=== PATIENT | female | born 1960 | race African-American/Black ===

== ENCOUNTER 2019-07-27 00:10 | Inpatient (IN) | payer MEDICAID ==
[~2019-07-27] VITALS: Ht 165.1 cm; Wt 104.8 kg
[2019-07-27] VITALS (7 sets, daily range): BP systolic 115–153; BP diastolic 61–96
--- NOTE | 2019-07-27 00:37 | NUR ---
ED Nurse Note: Pt ambulated to ED from home c/o N/V since 8pm, also complaining of abdominal pain, VSS, Pt A&Ox4, denies fever
[2019-07-27] MEDS ORDERED: Morphine Sulfate 4mg/ml Inj (IV USE ONLY) IVP ONE (00:45)
[2019-07-27] MEDS ORDERED: Omnipaque-300 100ml vial INJ PRN (00:45)
[2019-07-27 01:25] LABS: BASOPHILS % (AUTO) 1.3 % (0.0-2.0); EOSINOPHILS % (AUTO) 0.3 % (0.0-3.0); HEMATOCRIT 40.6 % (37.0-47.0); HEMOGLOBIN 13.8 G/DL (12.0-16.0); LYMPHOCYTES % (AUTO) 13.2 % (20.0-45.0); MEAN CORPUSCULAR VOLUME 90 FL (80-99); MONOCYTES % (AUTO) 5.1 % (1.0-10.0); NEUTROPHILS % (AUTO) 80.1 % (45.0-75.0); PLATELET COUNT 198 K/UL (150-450); RED CELL DISTRIBUTION WIDTH 12.1 % (11.6-14.8); WHITE BLOOD COUNT 9.8 K/UL (4.8-10.8)
[2019-07-27 01:34] LABS: BILIRUBIN, URINE NEGATIVE (NEGATIVE); GLUCOSE, URINE (UA) NEGATIVE (NEGATIVE); KETONES,URINE NEGATIVE (NEGATIVE); LEUKOCYTE ESTERASE ,URINE 3+ (NEGATIVE); NITRITE,URINE NEGATIVE (NEGATIVE); PH,URINE 5 (4.5-8.0); PROTEIN,URINE 2+ (NEGATIVE); UROBILINOGEN,URINE NORMAL MG/DL (0.0-1.0)
[2019-07-27 01:35] LABS: APPEARANCE,URINE SLIGHTLY CLOUDY; COLOR,URINE YELLOW
[2019-07-27 01:36] LABS: ANION GAP 9 mmol/L (5-15); BLOOD UREA NITROGEN 19 mg/dL (7-18); CALCIUM 9.4 MG/DL (8.5-10.1); CARBON DIOXIDE 28 MMOL/L (21-32); CHLORIDE 105 MMOL/L (98-107); SODIUM 141 MMOL/L (136-145)
[2019-07-27 01:40] LABS: ALANINE AMINOTRANSFERASE 80 U/L (12-78); ALBUMIN 3.3 G/DL (3.4-5.0); ALBUMIN/GLOBULIN RATIO 0.7 (1.0-2.7); ALKALINE PHOSPHATASE 191 U/L (46-116); ASPARTATE AMINO TRANSFERASE 50 U/L (15-37); BILIRUBIN,TOTAL 0.3 MG/DL (0.2-1.0)
[2019-07-27] MEDS ORDERED: cefTRIAXone 1 GM in NS 55 ML IVPB ONE (02:00)
--- NOTE | 2019-07-27 02:30 | NUR ---
ED Nurse Note: Pt resting in bed with eyes closed, non-labored breathing, no signs of distress, iv fluids infusing per order, will continue to monitor
--- NOTE | 2019-07-27 02:50 | Diagnostic Imaging Report ---
Clinical Indication: Abdominal pain for one day Technique: No oral contrast utilized, per emergency room physician request IV administration nonionic contrast. Venous phase spiral acquisition obtained through the abdomen and pelvis. Multiplanar reconstructions were generated. Total dose length product 1841 mGycm. CTDIvol(s) 30 mGy. Dose reduction achieved using automated exposure control Comparison: none Findings: There is a 6 mm calculus in the distal left ureter, approximately 1 cm proximal to the ureteral junction. This results in mild left hydronephrosis and hydroureter and considerable stranding of the perinephric and periureteral fat. No intrarenal calculus demonstrated. No right renal or ureteral calculi, right hydronephrosis or hydroureter demonstrated. The right kidney demonstrates a subcentimeter interpolar region low-attenuation lesion which is too small to characterize and another in the lower pole. The bladder is unremarkable. The gallbladder has been removed. The liver, bile ducts, pancreas, spleen, right adrenal are unremarkable. There is a 1.4 cm nodule in the left adrenal which demonstrates nonspecific attenuation No retroperitoneal or mesenteric mass or adenopathy. No pelvic mass or adenopathy. Uterus and ovaries are unremarkable. There is colonic diverticulosis. No evidence of acute diverticulitis. The appendix is normal. No small bowel distention. There is a small fat-containing umbilical hernia. No free or loculated intraperitoneal gas or fluid. Distal esophagus, stomach, duodenum are unremarkable. The included lung bases demonstrate posterior dependent atelectatic changes. The bones demonstrate mild scoliotic deformity and degenerative spondylosis changes. Impression: 6 mm distal left ureteral calculus. This results in left hydronephrosis, hydroureter, considerable stranding of the perinephric and periureteral fat 1.4 cm left adrenal nodule. This is probably benign. Recommend follow-up CT scan in one year to assess stability Colonic diverticulosis. No evidence of diverticulitis Subcentimeter low-attenuation right renal lesions, too small to characterize, most likely benign simple cysts. No further follow-up necessary Incidental findings as noted, including thoracolumbar scoliotic deformity, degenerative spondylosis, small fat-containing umbilical hernia This agrees with the preliminary interpretation provided overnight by [facility] teleradiology service. The CT scanner at [facility] is accredited by the [employer] and the scans are performed using protocols designed to limit radiation exposure to as low as reasonably achievable to attain images of sufficient resolution adequate for diagnostic evaluation.
[2019-07-27] MEDS ORDERED: Ketorolac 30mg Inj IV ONE (03:00)
[2019-07-27] MEDS ORDERED: Morphine Sulfate 4mg/ml Inj (IV USE ONLY) IVP PRN (04:00)
[2019-07-27] MEDS ORDERED: Ketorolac 30mg Inj IV PRN ×2 (04:00→09:00)
--- NOTE | 2019-07-27 04:10 | NUR ---
TRANSFER TO FLOOR: Patient transferred to as ordered, per [DR Quan]. Report given to [CARLOTA Castillo]. Belongings and medications given to []. Family and or S/O informed of transfer.
--- NOTE | 2019-07-27 04:17 | NUR ---
NURSE NOTES: Patient came from ER via wheelchair. A&OX4. IV sites are patent and intact. Skin intact. Belongings are checked. Patient wearing upper denture. Bed in lowest position. Call light within reach. Will continue to monitor.
[2019-07-27] MEDS ORDERED: COZAAR25 MG ORAL (04:49)
--- NOTE | 2019-07-27 04:50 | NUR ---
NURSE NOTES: Obtained new admit order from Dr. Medeiros. Per Dr. Medeiros, No antibiotic medication now, discontinue home medication, tell the morning RN contact Dr. Mondragon for IV fluid order.
--- NOTE | 2019-07-27 05:34 | Emergency Room Report ---
History of Present Illness General Chief Complaint: Vomiting Source: Patient Present Illness HPI 59-year-old female presents ED for evaluation. Complaining of abdominal pain and vomiting started tonight. After eating dinner. Notes nausea and vomiting. Status post cholecystectomy. Notes pain to lower abdomen. 8 out of 10, sharp , nonradiating. History of diverticulitis but states this feels different. Denies fevers or chills. No other aggravating relieving factors. Denies any other associated symptoms Allergies: Coded Allergies: No Known Allergies (Unverified , 07/27/19) Patient History Past Medical History: HTN, other - diverticulitis Past Surgical History: tania Pertinent Family History: none Social History: Denies: smoking, alcohol use, drug use Last Menstrual Period: 07/14/19 Now: No : 6 Para: 2 Immunizations: UTD Reviewed Nursing Documentation: PMH: Agreed; PSxH: Agreed Nursing Documentation-PMH Hx Hypertension: Yes Hx Gastrointestinal Problems: Yes Review of Systems All Other Systems: negative except mentioned in HPI Physical Exam Vital Signs Date Time Temp Pulse Resp B/P (MAP) Pulse Ox O2 Delivery O2 Flow Rate FiO2 07/27/19 00:15 97.9 80 18 145/61 (89) 93 Room Air Sp02 EP Interpretation: reviewed, normal General Appearance: no apparent distress, alert, GCS 15, non-toxic Head: normocephalic, atraumatic Eyes: bilateral eye normal inspection, bilateral eye PERRL ENT: hearing grossly normal, normal pharynx, no angioedema, normal voice Neck: full range of motion, supple/symm/no masses Respiratory: chest non-tender, lungs clear, normal breath sounds, speaking full sentences Cardiovascular #1: regular rate, rhythm, no edema Cardiovascular #2: 2+ carotid (R), 2+ carotid (L), 2+ radial (R), 2+ radial (L) , 2+ dorsalis pedis (R), 2+ dorsalis pedis (L) Gastrointestinal: normal bowel sounds, soft, non-distended, no guarding, no rebound, tenderness Rectal: deferred Genitourinary: normal inspection, no CVA tenderness Musculoskeletal: back normal, normal range of motion, gait/station normal, non- tender Neurologic: alert, motor strength/tone normal, oriented x3, sensory intact, responsive, speech normal Psychiatric: judgement/insight normal, memory normal, mood/affect normal, no suicidal/homicidal ideation Reflexes: 3+ bicep (R), 3+ bicep (L), 3+ tricep (R), 3+ tricep (L), 3+ knee (R) , 3+ knee (L) Skin: other - see nursing skin notes Lymphatic: no adenopathy Medical Decision Making Diagnostic Impression: Primary Impression: Kidney stone Additional Impressions: UTI (urinary tract infection) Qualified Codes: N39.0 - Urinary tract infection, site not specified; R31.9 - Hematuria, unspecified Diverticulosis Labs Test 07/27/19 00:55 07/27/19 01:00 Urine Color Yellow Urine Appearance Slightly cloudy Urine pH 5 (4.5-8.0) Urine Specific [place] 1.025 (1.005-1.035) Urine Protein 2+ (NEGATIVE) Urine Glucose (UA) Negative (NEGATIVE) Urine Ketones Negative (NEGATIVE) Urine Blood 1+ (NEGATIVE) Urine Nitrite Negative (NEGATIVE) Urine Bilirubin Negative (NEGATIVE) Urine Urobilinogen Normal MG/DL (0.0-1.0) Urine Leukocyte Esterase 3+ (NEGATIVE) Urine RBC 2-4 /HPF (0 - 2) Urine WBC 20-30 /HPF (0 - 2) Urine Squamous Epithelial Cells Many /LPF (NONE/OCC) Urine Bacteria Moderate /HPF (NONE) White Blood Count 9.8 K/UL (4.8-10.8) Red Blood Count 4.50 M/UL (4.20-5.40) Hemoglobin 13.8 G/DL (12.0-16.0) Hematocrit 40.6 % (37.0-47.0) Mean Corpuscular Volume 90 FL (80-99) Mean Corpuscular Hemoglobin 30.7 PG (27.0-31.0) Mean Corpuscular Hemoglobin Concent 34.0 G/DL (32.0-36.0) Red Cell Distribution Width 12.1 % (11.6-14.8) Platelet Count 198 K/UL (150-450) Mean Platelet Volume 9.8 FL (6.5-10.1) Neutrophils (%) (Auto) 80.1 % (45.0-75.0) Lymphocytes (%) (Auto) 13.2 % (20.0-45.0) Monocytes (%) (Auto) 5.1 % (1.0-10.0) Eosinophils (%) (Auto) 0.3 % (0.0-3.0) Basophils (%) (Auto) 1.3 % (0.0-2.0) Sodium Level 141 MMOL/L (136-145) Potassium Level 4.0 MMOL/L (3.5-5.1) Chloride Level 105 MMOL/L (98-107) Carbon Dioxide Level 28 MMOL/L (21-32) Anion Gap 9 mmol/L (5-15) Blood Urea Nitrogen 19 mg/dL (7-18) Creatinine 1.0 MG/DL (0.55-1.30) Estimat Glomerular Filtration Rate > 60 mL/min (>60) Glucose Level 140 MG/DL (74-106) Calcium Level 9.4 MG/DL (8.5-10.1) Total Bilirubin 0.3 MG/DL (0.2-1.0) Aspartate Amino Transf (AST/SGOT) 50 U/L (15-37) Alanine Aminotransferase (ALT/SGPT) 80 U/L (12-78) Alkaline Phosphatase 191 U/L (46-116) Total Protein 8.3 G/DL (6.4-8.2) Albumin 3.3 G/DL (3.4-5.0) Globulin 5.0 g/dL Albumin/Globulin Ratio 0.7 (1.0-2.7) Lipase 105 U/L (73-393) CT/MRI/US Diagnostic Results CT/MRI/US Diagnostic Results : Imaging Test Ordered: CT A/P Impression CT ABDOMEN & PELVIS With Contrast: There is a 7 mm obstructing stone within the distal left ureter just prior to the UVJ with moderate upstream obstructive changes. Incompletely characterized 1.4 cm left adrenal nodule. Descending and sigmoid diverticulosis without diverticulitis. Last Vital Signs Date Time Temp Pulse Resp B/P (MAP) Pulse Ox O2 Delivery O2 Flow Rate FiO2 07/27/19 05:22 Room Air 07/27/19 04:30 97.7 59 19 153/96 (115) 95 Status: improved Disposition: ADMITTED INPATIENT Condition: Serious Referrals: [facility],REFERRING (PCP) Francis Harrell MD Jul 27, 2019 05:34
--- NOTE | 2019-07-27 07:30 | NUR ---
HAND-OFF: Report given to Eugene VAN.
--- NOTE | 2019-07-27 07:48 | NUR ---
NURSE NOTES: received report from CARLOTA Turpin. patient in bed. sleeping. no respiratory distress noted. no facial grimacing. IV on RH22, LAC 20G saline lock. intact. NPO except ice chips and meds. bed in the lowest position and locked. call light within reach. will continue to provide plan of care.
--- NOTE | 2019-07-27 08:52 | Consultation ---
History of Present Illness General Date patient seen: Jul 27, 2019 Time patient seen: 07:15 - am Chief Complaint: Left Flank pain Referring physician: Waldemar Reason for Consultation: Pain management Present Illness HPI This is a 59 y/o female being seen on here in [facility] with c/o left flank pain since last night. She says the pain is off/on acute 7/10 sharp worse with movement and reduced on the medication. We were consulted so patient has adequate pain control while here in the hospital. She has been found to have left kidney stone with hydronephrosis. PAST MEDICAL HISTORY: History of hypertension, history of anxiety. SOCIAL HISTORY: She does not drink alcohol, but does smoke cigarettes. Allergies: Coded Allergies: No Known Allergies (Unverified , 07/27/19) Medication History Scheduled Losartan Potassium* (Cozaar*), 25 MG ORAL DAILY, (Reported) Patient History Healthcare decision maker Resuscitation status Full Code Advanced Directive on File Review of Systems Constitutional: Reports: no symptoms Eye: Reports: no symptoms ENT: Reports: no symptoms Respiratory: Reports: no symptoms Cardiovascular: Reports: no symptoms Gastrointestinal: Reports: no symptoms Genitourinary: Reports: no symptoms Musculoskeletal: Reports: no symptoms Skin: Reports: no symptoms Psychiatric: Reports: no symptoms Neurological: Reports: no symptoms Endocrine: Reports: no symptoms Hematologic/Lymphatic: Reports: no symptoms Physical Exam Physical Exam Narrative PHYSICAL EXAMINATION: GENERAL: AA&O HEENT: PERLLA NECK: Supple. CHEST: Clear to auscultation. CARDIOVASCULAR: S1 S2 regular ABDOMEN: Soft, obese with good bowel sounds. EXT: No CCE Last 24 Hour Vital Signs Date Time Temp Pulse Resp B/P (MAP) Pulse Ox O2 Delivery O2 Flow Rate FiO2 07/27/19 08:00 97.8 68 19 132/75 (94) 94 07/27/19 05:22 Room Air 07/27/19 04:30 97.7 59 19 153/96 (115) 95 07/27/19 04:10 98.2 82 20 137/72 95 Room Air 07/27/19 02:15 98.2 82 20 137/72 95 Room Air 07/27/19 00:15 97.9 80 18 145/61 93 Room Air 07/27/19 00:15 80 18 Room Air 07/27/19 00:15 97.9 80 18 145/61 (89) 93 Room Air Laboratory Tests Test 07/27/19 00:55 07/27/19 01:00 Urine Color Yellow Urine Appearance Slightly cloudy Urine pH 5 (4.5-8.0) Urine Specific [place] 1.025 (1.005-1.035) Urine Protein 2+ (NEGATIVE) H Urine Glucose (UA) Negative (NEGATIVE) Urine Ketones Negative (NEGATIVE) Urine Blood 1+ (NEGATIVE) H Urine Nitrite Negative (NEGATIVE) Urine Bilirubin Negative (NEGATIVE) Urine Urobilinogen Normal MG/DL (0.0-1.0) Urine Leukocyte Esterase 3+ (NEGATIVE) H Urine RBC 2-4 /HPF (0 - 2) H Urine WBC 20-30 /HPF (0 - 2) H Urine Squamous Epithelial Cells Many /LPF (NONE/OCC) H Urine Bacteria Moderate /HPF (NONE) H White Blood Count 9.8 K/UL (4.8-10.8) Red Blood Count 4.50 M/UL (4.20-5.40) Hemoglobin 13.8 G/DL (12.0-16.0) Hematocrit 40.6 % (37.0-47.0) Mean Corpuscular Volume 90 FL (80-99) Mean Corpuscular Hemoglobin 30.7 PG (27.0-31.0) Mean Corpuscular Hemoglobin Concent 34.0 G/DL (32.0-36.0) Red Cell Distribution Width 12.1 % (11.6-14.8) Platelet Count 198 K/UL (150-450) Mean Platelet Volume 9.8 FL (6.5-10.1) Neutrophils (%) (Auto) 80.1 % (45.0-75.0) H Lymphocytes (%) (Auto) 13.2 % (20.0-45.0) L Monocytes (%) (Auto) 5.1 % (1.0-10.0) Eosinophils (%) (Auto) 0.3 % (0.0-3.0) Basophils (%) (Auto) 1.3 % (0.0-2.0) Sodium Level 141 MMOL/L (136-145) Potassium Level 4.0 MMOL/L (3.5-5.1) Chloride Level 105 MMOL/L (98-107) Carbon Dioxide Level 28 MMOL/L (21-32) Anion Gap 9 mmol/L (5-15) Blood Urea Nitrogen 19 mg/dL (7-18) H Creatinine 1.0 MG/DL (0.55-1.30) Estimat Glomerular Filtration Rate > 60 mL/min (>60) Glucose Level 140 MG/DL (74-106) H Calcium Level 9.4 MG/DL (8.5-10.1) Total Bilirubin 0.3 MG/DL (0.2-1.0) Aspartate Amino Transf (AST/SGOT) 50 U/L (15-37) H Alanine Aminotransferase (ALT/SGPT) 80 U/L (12-78) H Alkaline Phosphatase 191 U/L (46-116) H Total Protein 8.3 G/DL (6.4-8.2) H Albumin 3.3 G/DL (3.4-5.0) L Globulin 5.0 g/dL Albumin/Globulin Ratio 0.7 (1.0-2.7) L Lipase 105 U/L (73-393) Height (Feet): 5 Height (Inches): 5.00 Weight (Pounds): 231 Medications Current Medications Medications (Trade) Dose Ordered Sig/Sarah Route PRN Reason Start Time Stop Time Status Last Admin Dose Admin Acetaminophen (Tylenol) 650 mg Q6HR PRN ORAL Mild Pain (Pain Scale 1-3) 07/27/19 04:00 Iohexol (OMNIPAQUE-300 100ml) 100 ml NOW PRN INJ Radiology Procedure 07/27/19 00:45 07/29/19 00:39 Ketorolac Tromethamine (Toradol 30mg) 15 mg PRN PRN IV Moderate Breakthru Pain (5-7) 07/27/19 04:00 Morphine Sulfate (Morphine Sulfate) 4 mg Q6HR PRN IVP Moderate Pain (Pain Scale 4-6) 07/27/19 04:00 Ondansetron HCl (Zofran) 4 mg Q6H PRN IVP Nausea & Vomiting 07/27/19 05:00 08/26/19 04:59 Assessment/Plan Assessment/Plan: (1) Left sided flank pain (2) Kidney stone Patient to be started on Morphine 2mg IV Q4H PRN severe pain and Toradol 15mg IV Q6H PRN moderate pain. D/w Dr. Jones and he concurred. Thank you for the courtesy of this consultation. Vik Shepard Jul 27, 2019 08:52
--- NOTE | 2019-07-27 09:06 | General Progress Note ---
Assessment/Plan Assessment/Plan: Assessment - N/V, ? resolved, ? gastroenteritis vs food poisoning - abnormal LFT, ? fatty liver, ? other - s/p recent cholecystectomy - urolithiasis with hydro Recommendations - check MRCP - check hepatitis serologies - Urology opinion - clears - H2B or PPI Subjective Allergies: Coded Allergies: No Known Allergies (Unverified , 07/27/19) Objective Last 24 Hour Vital Signs Date Time Temp Pulse Resp B/P (MAP) Pulse Ox O2 Delivery O2 Flow Rate FiO2 07/27/19 08:00 97.8 68 19 132/75 (94) 94 07/27/19 05:22 Room Air 07/27/19 04:30 97.7 59 19 153/96 (115) 95 07/27/19 04:10 98.2 82 20 137/72 95 Room Air 07/27/19 02:15 98.2 82 20 137/72 95 Room Air 07/27/19 00:15 97.9 80 18 145/61 93 Room Air 07/27/19 00:15 80 18 Room Air 07/27/19 00:15 97.9 80 18 145/61 (89) 93 Room Air Laboratory Tests 07/27/19 00:55: Urine Color Yellow, Urine Appearance Slightly cloudy, Urine pH 5, Urine Specific [place] 1.025, Urine Protein 2+H, Urine Glucose (UA) Negative, Urine Ketones Negative, Urine Blood 1+H, Urine Nitrite Negative, Urine Bilirubin Negative, Urine Urobilinogen Normal, Urine Leukocyte Esterase 3+H, Urine RBC 2- 4H, Urine WBC 20-30H, Urine Squamous Epithelial Cells ManyH, Urine Bacteria ModerateH 07/27/19 01:00: White Blood Count 9.8, Red Blood Count 4.50, Hemoglobin 13.8, Hematocrit 40.6, Mean Corpuscular Volume 90, Mean Corpuscular Hemoglobin 30.7, Mean Corpuscular Hemoglobin Concent 34.0, Red Cell Distribution Width 12.1, Platelet Count 198, Mean Platelet Volume 9.8, Neutrophils (%) (Auto) 80.1H, Lymphocytes (%) (Auto) 13.2L, Monocytes (%) (Auto) 5.1, Eosinophils (%) (Auto) 0.3, Basophils (%) (Auto ) 1.3, Sodium Level 141, Potassium Level 4.0, Chloride Level 105, Carbon Dioxide Level 28, Anion Gap 9, Blood Urea Nitrogen 19H, Creatinine 1.0, Estimat Glomerular Filtration Rate > 60, Glucose Level 140H, Calcium Level 9.4, Total Bilirubin 0.3, Aspartate Amino Transf (AST/SGOT) 50H, Alanine Aminotransferase ( ALT/SGPT) 80H, Alkaline Phosphatase 191H, Total Protein 8.3H, Albumin 3.3L, Globulin 5.0, Albumin/Globulin Ratio 0.7L, Lipase 105 Height (Feet): 5 Height (Inches): 5.00 Weight (Pounds): 231 Dejan Baig MD Jul 27, 2019 09:06
--- NOTE | 2019-07-27 09:30 | NUR ---
NURSE NOTES RN notified nguyễn Araujo regarding IV fluid order. MD will review lab and put order if the patient needs.
--- NOTE | 2019-07-27 13:24 | NUR ---
NURSE NOTES: patient had a episode of chalking with her saliva during sleeping. patient said that she has a hx of sleep apnea using bipap at home. notified Dr. Medeiros get an physician consult with Dr. Sr for pulomary consult. RN called Dr. Sr. Received order of change to cardiac diet. heparin injection SQ twice a day for DVT PPX. bipap PRN, Oxygen PRN. Zosyn 3.375IV Q6hrs. breathing TX janes Q4hrs. order noted and carried out.
--- NOTE | 2019-07-27 14:06 | NUR ---
NURSE NOTES: Patient seen by Dr. Arsenio Almaraz. New order of Ceftriaxone 1gm for UTI. DC Zosyn3.375 Q6hrs.
--- NOTE | 2019-07-27 14:30 | Consultation ---
DATE OF CONSULTATION: 07/27/2019 GASTROENTEROLOGY CONSULTATION CONSULTING PHYSICIAN: Dejan Baig M.D. CHIEF COMPLAINT: I was asked to see this patient by Dr. James Medeiros for evaluation of vomiting and abnormal liver tests. HISTORY OF PRESENT ILLNESS: The patient is a pleasant 59-year-old woman, who had a cholecystectomy about 3 months ago. She came to the hospital because of 1-day history of acute nausea and vomiting. She is better now. She has not had any vomiting overnight. She has no abdominal pain and no contacts with the same symptoms. She had CT imaging of her abdomen showing some urolithiasis with one stone potentially causing hydronephrosis. She also has some diverticulosis, but no diverticulitis. The patient states that her last endoscopy and colonoscopy were done at an outside hospital in about October of this year and she cannot not recall being told of any significant findings. PAST MEDICAL HISTORY: History of hypertension, history of anxiety. MEDICATIONS: Vitamin D, medication for hypertension, potassium supplements, and Pepcid. FAMILY HISTORY: Positive for mother having CHF and COPD. SOCIAL HISTORY: The patient is and she has 2 children. She does not drink alcohol, but does smoke cigarettes. REVIEW OF SYSTEMS: Otherwise negative. PHYSICAL EXAMINATION: GENERAL: Pleasant, obese, woman, seen in her room. HEENT: Normocephalic, atraumatic. Sclerae anicteric. Oropharynx clear. NECK: Supple. CHEST: Clear to auscultation. CARDIOVASCULAR: Revealed a regular rate. ABDOMEN: Soft, obese with good bowel sounds. There is no significant tenderness throughout the abdomen at this point after overnight rest. LABORATORY DATA: Noted. ASSESSMENT: This patient presents with a transient episode of nausea and vomiting yesterday, which perhaps appears to have resolved already. This may have been due to an exposure to food toxins versus viral gastroenteritis. If so, then course will be unremarkable and recovery will be with supportive measures only. The patient does however have abnormal liver tests, which may be due to fatty liver since the patient is obese. I would do an MRI to rule out any common bile duct stones and then also check her hepatitis serologies to rule out any chronic viral hepatitis. The patient also has kidney stones, which may have played a role in the patient's presentation. Urology consultation is pending. RECOMMENDATIONS: Per above discussion and per orders written in the chart. Thank you for asking me to participate in the care of this patient. Dejan Baig M.D. DR: YASMIN JOB#: [id number] CC:
--- NOTE | 2019-07-27 15:31 | Pulmonology Progress Note ---
Assessment/Plan Assessment/Plan Pulmonary Consultation HPI Patient is a 59-year-old female admitted with abdominal pain, nausea and vomiting started tonight. Status post cholecystectomy 3 months ago. Notes pain to lower abdomen, 8 out of 10, sharp, nonradiating. History of diverticulitis but states this feels different. Denies fevers or chills. No other aggravating relieving factors. Denies any other associated symptoms Allergies: No Known Allergies Past Medical History: Hypertension, Obstructive Sleep Apnea, Diverticulitis Past Surgical History: cholecystectomy Social History: Denies alcohol use, drug use, smoking history All Other Systems: negative except mentioned in HPI Physical Exam Vital Signs Noted Date Time Temp Pulse Resp B/P (MAP) Pulse Ox O2 Delivery O2 Flow Rate FiO2 07/27/19 00:15 97.9 80 18 145/61 (89) 93 Room Air General Appearance: no apparent distress, alert, GCS 15, non-toxic Head: normocephalic, atraumatic Eyes: bilateral eye normal inspection, bilateral eye PERRL ENT: hearing grossly normal, normal pharynx, no angioedema, normal voice Neck: full range of motion, supple/symm/no masses Respiratory: chest non-tender, lungs clear, normal breath sounds, speaking full sentences Cardiovascular: regular rate, rhythm, HS1, HS2 normal, no edema Gastrointestinal: normal bowel sounds, soft, non-distended, no guarding, no rebound, tenderness, no CVA tenderness Musculoskeletal: back normal, normal range of motion, gait/station normal, non- tender Neurologic: alert, motor strength/tone normal, oriented x3, sensory intact, responsive, speech normal Lymphatic: no adenopathy Impression: Kidney stone Urinary tract infection Diverticulosis Hypertension Obstructive Sleep Apnea Possible COPD Plan IV Antibiotics Urology 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 QHS/PRN HHN PRN O2 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 Monitor Labs Labs Noted Test 07/27/19 00:55 07/27/19 01:00 Urine Color Yellow Urine Appearance Slightly cloudy Urine pH 5 (4.5-8.0) Urine Specific [place] 1.025 (1.005-1.035) Urine Protein 2+ (NEGATIVE) Urine Glucose (UA) Negative (NEGATIVE) Urine Ketones Negative (NEGATIVE) Urine Blood 1+ (NEGATIVE) Urine Nitrite Negative (NEGATIVE) Urine Bilirubin Negative (NEGATIVE) Urine Urobilinogen Normal MG/DL (0.0-1.0) Urine Leukocyte Esterase 3+ (NEGATIVE) Urine RBC 2-4 /HPF (0 - 2) Urine WBC 20-30 /HPF (0 - 2) Urine Squamous Epithelial Cells Many /LPF (NONE/OCC) Urine Bacteria Moderate /HPF (NONE) White Blood Count 9.8 K/UL (4.8-10.8) Red Blood Count 4.50 M/UL (4.20-5.40) Hemoglobin 13.8 G/DL (12.0-16.0) Hematocrit 40.6 % (37.0-47.0) Mean Corpuscular Volume 90 FL (80-99) Mean Corpuscular Hemoglobin 30.7 PG (27.0-31.0) Mean Corpuscular Hemoglobin Concent 34.0 G/DL (32.0-36.0) Red Cell Distribution Width 12.1 % (11.6-14.8) Platelet Count 198 K/UL (150-450) Mean Platelet Volume 9.8 FL (6.5-10.1) Neutrophils (%) (Auto) 80.1 % (45.0-75.0) Lymphocytes (%) (Auto) 13.2 % (20.0-45.0) Monocytes (%) (Auto) 5.1 % (1.0-10.0) Eosinophils (%) (Auto) 0.3 % (0.0-3.0) Basophils (%) (Auto) 1.3 % (0.0-2.0) Sodium Level 141 MMOL/L (136-145) Potassium Level 4.0 MMOL/L (3.5-5.1) Chloride Level 105 MMOL/L (98-107) Carbon Dioxide Level 28 MMOL/L (21-32) Anion Gap 9 mmol/L (5-15) Blood Urea Nitrogen 19 mg/dL (7-18) Creatinine 1.0 MG/DL (0.55-1.30) Estimat Glomerular Filtration Rate > 60 mL/min (>60) Glucose Level 140 MG/DL (74-106) Calcium Level 9.4 MG/DL (8.5-10.1) Total Bilirubin 0.3 MG/DL (0.2-1.0) Aspartate Amino Transf (AST/SGOT) 50 U/L (15-37) Alanine Aminotransferase (ALT/SGPT) 80 U/L (12-78) Alkaline Phosphatase 191 U/L (46-116) Total Protein 8.3 G/DL (6.4-8.2) Albumin 3.3 G/DL (3.4-5.0) Globulin 5.0 g/dL Albumin/Globulin Ratio 0.7 (1.0-2.7) Lipase 105 U/L (73-393) CT Abdomen and Pelvis : CT ABDOMEN & PELVIS With Contrast: There is a 7 mm obstructing stone within the distal left ureter just prior to the UVJ with moderate upstream obstructive changes. Incompletely characterized 1.4 cm left adrenal nodule. Descending and sigmoid diverticulosis without diverticulitis Subjective ROS Limited/Unobtainable: No Gastrointestinal/Abdominal: Reports: nausea, vomiting Allergies: Coded Allergies: No Known Allergies (Unverified , 07/27/19) Objective Last 24 Hour Vital Signs Date Time Temp Pulse Resp B/P (MAP) Pulse Ox O2 Delivery O2 Flow Rate FiO2 07/27/19 12:00 97.0 68 18 123/80 (94) 93 07/27/19 09:00 Room Air 07/27/19 08:00 97.8 68 19 132/75 (94) 94 07/27/19 05:22 Room Air 07/27/19 04:30 97.7 59 19 153/96 (115) 95 07/27/19 04:10 98.2 82 20 137/72 95 Room Air 07/27/19 02:15 98.2 82 20 137/72 95 Room Air 07/27/19 00:15 97.9 80 18 145/61 93 Room Air 07/27/19 00:15 80 18 Room Air 07/27/19 00:15 97.9 80 18 145/61 (89) 93 Room Air Laboratory Tests 07/27/19 00:55: Urine Color Yellow, Urine Appearance Slightly cloudy, Urine pH 5, Urine Specific [place] 1.025, Urine Protein 2+H, Urine Glucose (UA) Negative, Urine Ketones Negative, Urine Blood 1+H, Urine Nitrite Negative, Urine Bilirubin Negative, Urine Urobilinogen Normal, Urine Leukocyte Esterase 3+H, Urine RBC 2- 4H, Urine WBC 20-30H, Urine Squamous Epithelial Cells ManyH, Urine Bacteria ModerateH 07/27/19 01:00: White Blood Count 9.8, Red Blood Count 4.50, Hemoglobin 13.8, Hematocrit 40.6, Mean Corpuscular Volume 90, Mean Corpuscular Hemoglobin 30.7, Mean Corpuscular Hemoglobin Concent 34.0, Red Cell Distribution Width 12.1, Platelet Count 198, Mean Platelet Volume 9.8, Neutrophils (%) (Auto) 80.1H, Lymphocytes (%) (Auto) 13.2L, Monocytes (%) (Auto) 5.1, Eosinophils (%) (Auto) 0.3, Basophils (%) (Auto ) 1.3, Sodium Level 141, Potassium Level 4.0, Chloride Level 105, Carbon Dioxide Level 28, Anion Gap 9, Blood Urea Nitrogen 19H, Creatinine 1.0, Estimat Glomerular Filtration Rate > 60, Glucose Level 140H, Calcium Level 9.4, Total Bilirubin 0.3, Aspartate Amino Transf (AST/SGOT) 50H, Alanine Aminotransferase ( ALT/SGPT) 80H, Alkaline Phosphatase 191H, Total Protein 8.3H, Albumin 3.3L, Globulin 5.0, Albumin/Globulin Ratio 0.7L, Lipase 105 Current Medications Medications (Trade) Dose Ordered Sig/Sarah Route PRN Reason Start Time Stop Time Status Last Admin Dose Admin Acetaminophen (Tylenol) 650 mg Q6HR PRN ORAL Mild Pain (Pain Scale 1-3) 07/27/19 04:00 Albuterol/ Ipratropium (Albuterol/ Ipratropium) 3 ml Q4HRT HHN 07/27/19 15:00 08/01/19 14:59 Ceftriaxone Sodium 1 gm/ Dextrose 55 ml @ 110 mls/hr Q24H IVPB 07/28/19 02:00 08/04/19 01:59 Heparin Sodium (Porcine) (Heparin 5000 units/ml) 5,000 units EVERY 12 HOURS SUBQ 07/27/19 21:00 08/26/19 20:59 Iohexol (OMNIPAQUE-300 100ml) 100 ml NOW PRN INJ Radiology Procedure 07/27/19 00:45 07/29/19 00:39 Ketorolac Tromethamine (Toradol 30mg) 15 mg Q6H PRN IV moderate pain 07/27/19 09:00 08/01/19 08:59 Morphine Sulfate (Morphine Sulfate) 2 mg Q4H PRN IVP severe pain 07/27/19 09:00 08/03/19 08:59 Ondansetron HCl (Zofran) 4 mg Q6H PRN IVP Nausea & Vomiting 07/27/19 05:00 08/26/19 04:59 Tavo Marshall MD Jul 27, 2019 15:30
[2019-07-27] MEDS: Albuterol/Ipratropium 3ml neb HHN SCH ×2 (15:34→20:07)
--- NOTE | 2019-07-27 15:53 | Diagnostic Imaging Report ---
Indication: Nausea, vomiting, abnormal liver function tests, status post recent cholecystectomy Technique: Coronal and axial single shot fast spin-echo breath-hold, axial T2 FRFSE, 2-D thick slab MRCP, AXIAL 2-D FIESTA fat saturated, axial 3-D dual echo breath-hold, water weighted axial LAVA FLEX, revealed 3-D MRCP images were obtained of the abdomen. MIP reconstructions were generated of the bile ducts Comparison: Reference made to abdomen pelvis CT of earlier the same day Findings: Previously reported left adrenal nodule demonstrates signal dropout on the out of phase images, consistent with a benign lipid rich adenoma. The patient is status post cholecystectomy. Susceptibility artifact from the cholecystectomy clips is noted. The bile ducts are nondilated and demonstrate no evidence of filling defect. The pancreatic duct is normal in appearance. The liver, pancreas, spleen, right adrenal are all unremarkable. The left kidney demonstrates [id number] hydronephrosis. There is considerable fluid surrounding the kidney, both perinephric and in Gerota's fascia. There is a filling defect of the distal left ureter seen on the coronal images, corresponding to the large calculus demonstrated on prior CT scan. 2 cysts are seen in the right kidney. Impression: Left adrenal nodule described on recent CT scan is demonstrated on out of phase dual echo images to represent a benign lipid rich adenoma Status post cholecystectomy. No evidence of biliary ductal dilatation or choledocholithiasis Mild to moderate left hydronephrosis and hydroureter, with distal ureteral filling defect responding to calculus described on recent CT scan Incidental findings small right renal cyst
--- NOTE | 2019-07-27 17:30 | NUR ---
NURSE NOTES: Pt. received sleeping in bed, no acute SOB indicated at this time. Bed in the low and locked position, side rails are up, and call light is in reach. Addendum: 07/27/19 at 2349 by Pedro Rodriguez RN Disregard above time stamp. Actual time of documentation 1929.
[2019-07-27] MEDS: Morphine Sulfate 2mg/ml Inj(IV/IM USE ONLY) IVP PRN ×2 (17:46→22:15)
[2019-07-27] MEDS ORDERED: Zosyn 2.25gm inj IV SCH (18:00)
--- NOTE | 2019-07-27 18:15 | NUR ---
NURSE NOTES: patient asking medication for blood pressure. she said that she takes cozaar 25mg po daily at home. Notified edilberto Araujo and received order cozaar 25mg po daily. hold if SBP<130. order noted and carried out.
--- NOTE | 2019-07-27 19:25 | NUR ---
HAND-OFF: Report given to CARLOTA Morales&CARLOTA Vasquez.
[2019-07-27] MEDS: Heparin 5000 units/ml inj SUBQ SCH (20:52)
--- NOTE | 2019-07-27 21:10 | NUR ---
NURSE NOTES: Pt is in bed. awake and verbal. No acute distress noted. NO SOB. Room air. Pt has a visitor by bedside. Fall precaution in place. Pt will be monitored. Trainee Pedro Rodriguez RN will be assisting in the care of the patient.
--- NOTE | 2019-07-27 22:45 | NUR ---
NURSE NOTES: Pt. refused BIPAP from respiratory therapist.
[2019-07-28] VITALS: BP 115/73
[2019-07-28] MEDS: Albuterol/Ipratropium 3ml neb HHN SCH ×7 (00:13→22:18)
--- NOTE | 2019-07-28 00:45 | Consultation ---
DATE OF CONSULTATION: 07/27/2019 INFECTIOUS DISEASE CONSULTATION CONSULTING PHYSICIAN: Arsenio Bravo M.D. PRIMARY ATTENDING PHYSICIAN: James Medeiros M.D. REASON FOR CONSULT: UTI, pyelonephritis, hydronephrosis. HISTORY OF PRESENT ILLNESS: This is a 59-year-old female, admitted today from home, complaining of abdominal pain, nausea, and vomiting. These symptoms started on the day of admission after eating dinner. Pain was 8/10, sharp. PAST MEDICAL HISTORY: Significant for hypertension, diverticulitis. PAST SURGICAL HISTORY: She has a history of cholecystectomy. ALLERGIES: No known drug allergies. MEDICATIONS: Morphine, Toradol, Zofran, Tylenol, got a dose of ceftriaxone in the ER. SOCIAL HISTORY: . No history of alcohol, drug abuse, or smoking. REVIEW OF SYSTEMS: Unobtainable. The patient is sedated, sleeping, and snoring. PHYSICAL EXAMINATION: VITAL SIGNS: Temperature 97.8, pulse 68, blood pressure 132/75. GENERAL APPEARANCE: No acute distress. Obese. HEAD AND NECK: [place] conjunctivae. HEART: Normal rate. LUNGS: Clear. ABDOMEN: Soft, nontender. EXTREMITIES: No edema. LABORATORY AND DIAGNOSTIC DATA: WBC 9.8, hemoglobin 13.8, hematocrit 40.6, and platelets is 198,000. Sodium 141, potassium 4, chloride 105, bicarbonate 28, BUN 19, creatinine 1. AST 50, ALT 80, alkaline phosphatase is 191, total protein 8.3, albumin is 3.3, lipase is 105. UA showed wbc's of 20 to 30, rbc's of [address] scan of the abdomen and pelvis showed a 6 mm distal left ureteral calculus, left kidney hydronephrosis, hydroureter, stranding of perinephric and periureteral fat, 1.4 cm left adrenal nodule, colonic diverticulosis. IMPRESSION: 1. Obstructive uropathy, likely with UTI and pyelonephritis. 2. Distal ureteral calculus. 3. Elevated transaminase. 4. Obesity. 5. Hypertension. 6. Diverticulosis. 7. Adrenal nodule. 8. Hydronephrosis with hydroureter. RECOMMENDATION: We will continue ceftriaxone. We will follow up the cultures. At the end of my exam, I thank Dr. Medeiros for involving me in the care of this patient. Arsenio Bravo M.D. DR: MARCO ANTONIO JOB#: [id number] CC: REANNA
[2019-07-28] MEDS: cefTRIAXone 1 GM in D5W 55 ML IVPB SCH (02:11)
--- NOTE | 2019-07-28 03:14 | NUR ---
NURSE NOTES: Pt is in bed, asleep. No acute distress noted. Vitas stable. No SOB.
[2019-07-28 04:00] VITALS: BP 130/71
[2019-07-28] MEDS ORDERED: Sorbitol Solution UD 30ml ORAL PRN (05:30)
--- NOTE | 2019-07-28 05:45 | History and Physical Report ---
DATE OF ADMISSION: 07/27/2019 HISTORY OF PRESENT ILLNESS: The patient has a history of sleep apnea, uses BiPAP at home. She is a heavy smoker. She had episode of choking with saliva during sleeping. She was brought into the hospital for that and was admitted for urinary tract infection and possible kidney stones. The patient also had some nausea and flank pain as well as some chills. Denies shortness of breath. Does have occasional cough. Denies orthopnea. PAST MEDICAL HISTORY: Significant for hypertension, diverticulosis, sleep apnea, and kidney stone. PAST SURGICAL HISTORY: None. ALLERGIES: No known allergies. MEDICATIONS: Losartan 25 daily. FAMILY HISTORY: Noncontributory. REVIEW OF SYSTEMS: HEENT: Denies headaches. Denies shortness of breath. Does have some cough. CARDIOVASCULAR: Denies chest pain. GASTROINTESTINAL: Reported some nausea. Denies abdominal pain. EXTREMITIES: Denies pain in lower extremities. CENTRAL NERVOUS SYSTEM: Denies change in vision or speech pattern. PHYSICAL EXAMINATION: VITAL SIGNS: Temperature is 97, pulse 68, blood pressure 123/80. HEENT: PERRLA. NECK: Supple. No lymphadenopathy. CHEST: Clear to auscultation. CARDIOVASCULAR: Regular rate and rhythm. No murmurs or extra sounds. GASTROINTESTINAL: Soft, nontender, nondistended. No organomegaly. EXTREMITIES: No edema. Moves all four extremities. Sensory is intact to light touch. Reflexes equal on both sides. ASSESSMENT/PLAN: Episode of choking, sleep apnea, respiratory insufficiency, as well as urinary tract infection, and proximal kidney stone. I have asked Dr. Fraser, Dr. Baig; Dr. Marshall, Dr. Jones, Dr. Arsenio Bravo to see the patient for the above-mentioned diagnosis as well as for the treatment, and for the abnormal imaging as well as abnormal laboratories as well. James Medeiros M.D. DR: Erica JOB#: [id number] CC:
--- NOTE | 2019-07-28 07:10 | NUR ---
HAND-OFF: Report given to Eugene Birmingham RN.
--- NOTE | 2019-07-28 07:35 | NUR ---
NURSE NOTES: received report from CARLOTA Morales and CARLOTA Vasquez. patient in bed. sleeping. no respiratory distress noted. no facial grimacing noted. IV on RH22, LAC20. saline lock. intact. bed in the lowest position and locked. call light within reach. will continue to provide plan of care.
[2019-07-28 08:00] VITALS: BP 143/89
[2019-07-28] MEDS: Losartan 25mg tab ORAL SCH (08:53)
[2019-07-28] MEDS: Heparin 5000 units/ml inj SUBQ SCH ×2 (08:54→21:05)
[2019-07-28] MEDS: Morphine Sulfate 2mg/ml Inj(IV/IM USE ONLY) IVP PRN ×2 (09:03→20:59)
[2019-07-28 09:08] LABS: ALANINE AMINOTRANSFERASE 71 U/L (12-78); ALBUMIN 2.8 G/DL (3.4-5.0); ALBUMIN/GLOBULIN RATIO 0.6 (1.0-2.7); ALKALINE PHOSPHATASE 176 U/L (46-116); ANION GAP 5 mmol/L (5-15); ASPARTATE AMINO TRANSFERASE 56 U/L (15-37); BILIRUBIN,TOTAL 0.3 MG/DL (0.2-1.0); BLOOD UREA NITROGEN 20 mg/dL (7-18); CARBON DIOXIDE 30 MMOL/L (21-32); CHLORIDE 106 MMOL/L (98-107); CREATININE 1.3 MG/DL (0.55-1.30); POTASSIUM 3.9 MMOL/L (3.5-5.1); SODIUM 141 MMOL/L (136-145)
--- NOTE | 2019-07-28 09:14 | General Progress Note ---
Assessment/Plan Assessment/Plan: (1) Left sided flank pain (2) Kidney stone Patient to be continued on Morphine and Toradol. D/w Dr. Jones and he concurred. Subjective Date patient seen: Jul 28, 2019 Time patient seen: 08:30 - am Constitutional: Reports: no symptoms HEENT: Reports: no symptoms Cardiovascular: Reports: no symptoms Respiratory: Reports: no symptoms Gastrointestinal/Abdominal: Reports: no symptoms Genitourinary: Reports: no symptoms Neurologic/Psychiatric: Reports: no symptoms Endocrine: Reports: no symptoms Hematologic/Lymphatic: Reports: no symptoms Allergies: Coded Allergies: No Known Allergies (Unverified , 07/27/19) Subjective Patient is in bed reports moderate pain tolerated on the Morphine 3 doses in the last 24hrs. Waiting for urology consult. No new complaints at this time. Objective Last 24 Hour Vital Signs Date Time Temp Pulse Resp B/P (MAP) Pulse Ox O2 Delivery O2 Flow Rate FiO2 07/28/19 08:53 143/89 07/28/19 07:49 70 16 98 Room Air 21 07/28/19 04:00 97.5 72 19 130/71 (90) 94 07/28/19 03:46 76 18 99 Room Air 21 77 18 94 07/28/19 00:00 98.1 59 20 115/73 (87) 100 07/27/19 23:59 74 18 99 Room Air 21 71 18 96 07/27/19 21:00 Room Air 07/27/19 20:08 74 18 97 Room Air 21 07/27/19 20:08 77 18 99 Room Air 21 74 18 97 07/27/19 20:00 97.6 64 20 115/65 (82) 94 07/27/19 16:00 98.1 62 20 132/91 (105) 98 07/27/19 15:54 78 18 98 Room Air 21 07/27/19 15:52 82 18 99 Room Air 21 73 18 94 07/27/19 12:00 97.0 68 18 123/80 (94) 93 Intake and Output 07/27/19 07/28/19 19:00 07:00 Intake Total 240 ml 110 ml Balance 240 ml 110 ml Intake Oral 240 ml IV Total 110 ml # Voids 3 2 Laboratory Tests 07/28/19 08:20: Sodium Level 141, Potassium Level 3.9, Chloride Level 106, Carbon Dioxide Level 30, Anion Gap 5, Blood Urea Nitrogen 20H, Creatinine 1.3, Estimat Glomerular Filtration Rate 50.8, Glucose Level 101, Calcium Level 9.0, Total Bilirubin 0.3 , Aspartate Amino Transf (AST/SGOT) 56H, Alanine Aminotransferase (ALT/SGPT) 71 , Alkaline Phosphatase 176H, Total Protein 7.4, Albumin 2.8L, Globulin 4.6, Albumin/Globulin Ratio 0.6L, Hepatitis A IgM Antibody [Pending], Hepatitis B Surface Antigen [Pending], Hepatitis B Core IgM Antibody [Pending], Hepatitis C Antibody [Pending] Height (Feet): 5 Height (Inches): 5.00 Weight (Pounds): 231 General Appearance: no apparent distress, alert EENT: PERRL/EOMI, normal ENT inspection Neck: non-tender, normal alignment Cardiovascular: normal rate, regular rhythm Respiratory/Chest: lungs clear, normal breath sounds Abdomen: non tender, soft Extremities: non-tender Edema: no edema noted Generalized Neurologic: alert, oriented x 3 Skin: warm/dry Vik Shepard Jul 28, 2019 09:14
--- NOTE | 2019-07-28 10:15 | NUR ---
NURSE NOTES: patient c/o pain on left flank pain 9/10 this morning. Urology consult with Bria Araujo. RN notified Dr. Fraser for consult. waiting for further order.
--- NOTE | 2019-07-28 10:30 | NUR ---
NURSE NOTES: Received call from DR. Fraser. MD will see the patient today.
--- NOTE | 2019-07-28 11:45 | NUR ---
NURSE NOTES: patient tried to go down stair for smoking without asking nursing staff. RN informed and educated the patient leaving unit without permission is against medical order, needs to ask nursing staff to assist her. Nursing staff assisted her to go down stair for smoking and the patient came back at this time. Addendum: 07/28/19 at 1444 by ARMANDO SULLIVAN RN Wrong patient entry.
--- NOTE | 2019-07-28 11:53 | NUR ---
NURSE NOTES: patient refused to get breathing tx at this time. patient said she would get next dose. no respiratory distress noted.
--- NOTE | 2019-07-28 11:59 | Diagnostic Imaging Report ---
Indication: Shoulder pain Technique: XRAY Shoulder Compl R Comparison: None Findings: Limited exam due to underpenetration, likely secondary to patient body habitus. No acute fractures identified. No evidence of dislocation. Question minimal inferior subluxation of the humeral head relative to the glenoid on some views some streaky opacities noted at the right base. No radiopaque foreign body. Impression: Negative exam due to underpenetration from large patient body habitus. No acute fracture identified. Question minimal inferior subluxation of the humeral head relative to the glenoid.
--- NOTE | 2019-07-28 13:01 | NUR ---
NURSE NOTES: Xray on right shoulder for pain taken and resulted. notified Dr. Medeiros and received order consult with DR. Jones for the further order for the pain management. RN notified VINAY Shepard covering DR. Jones and waiting for further order.
--- NOTE | 2019-07-28 13:07 | NUR ---
NURSE NOTES: VINAY Shepard called back. no new order or no change order for the pain at this time. continue with the pain medications currently patient has. order noted and carried out.
--- NOTE | 2019-07-28 13:09 | GI Progress Note ---
Assessment/Plan Problems: (1) Constipation ICD Codes: K59.00 - Constipation, unspecified SNOMED: 70036627 (2) Abdominal bloating ICD Codes: R14.0 - Abdominal distension (gaseous) SNOMED: 735534411 (3) Diverticulosis ICD Codes: K57.90 - Diverticulosis of intestine, part unspecified, without perforation or abscess without bleeding SNOMED: 992758705 Status: stable Status Narrative Discussed with Dr. Barajas. Assessment/Plan Assessment - N/V, ? resolved, ? gastroenteritis vs food poisoning >> patient has complaint of constipation - abnormal LFT, ? fatty liver, ? other - s/p recent cholecystectomy - urolithiasis with hydro Recommendations - check MRCP, negative for biliary ductal dilatation or choledocholithiasis - check hepatitis serologies, pending - Urology opinion - clears, advance as tolerated - H2B or PPI - bowel regime - simethicone prn The patient was seen and examined at bedside and all new and available data was reviewed in the patients chart. I agree with the above findings, impression and plan. (Patient seen earlier today. Signature stamp does not reflect patient encounter time.). - Bert Barajas MD Subjective Subjective Constipation Abdominal bloating Gas pain Denies any nausea vomiting Objective Last 24 Hour Vital Signs Date Time Temp Pulse Resp B/P (MAP) Pulse Ox O2 Delivery O2 Flow Rate FiO2 07/28/19 09:00 Room Air 07/28/19 08:53 143/89 07/28/19 08:00 97.5 63 19 143/89 (107) 95 07/28/19 07:49 70 16 98 Room Air 21 07/28/19 04:00 97.5 72 19 130/71 (90) 94 07/28/19 03:46 76 18 99 Room Air 21 77 18 94 07/28/19 00:00 98.1 59 20 115/73 (87) 100 07/27/19 23:59 74 18 99 Room Air 21 71 18 96 07/27/19 21:00 Room Air 07/27/19 20:08 74 18 97 Room Air 21 07/27/19 20:08 77 18 99 Room Air 21 74 18 97 07/27/19 20:00 97.6 64 20 115/65 (82) 94 07/27/19 16:00 98.1 62 20 132/91 (105) 98 07/27/19 15:54 78 18 98 Room Air 21 07/27/19 15:52 82 18 99 Room Air 21 73 18 94 Intake and Output 07/27/19 07/28/19 18:59 06:59 Intake Total 240 ml 110 ml Balance 240 ml 110 ml Intake Oral 240 ml IV Total 110 ml # Voids 3 2 Laboratory Tests Test 07/28/19 08:20 Sodium Level 141 MMOL/L (136-145) Potassium Level 3.9 MMOL/L (3.5-5.1) Chloride Level 106 MMOL/L (98-107) Carbon Dioxide Level 30 MMOL/L (21-32) Anion Gap 5 mmol/L (5-15) Blood Urea Nitrogen 20 mg/dL (7-18) H Creatinine 1.3 MG/DL (0.55-1.30) Estimat Glomerular Filtration Rate 50.8 mL/min (>60) Glucose Level 101 MG/DL (74-106) Calcium Level 9.0 MG/DL (8.5-10.1) Total Bilirubin 0.3 MG/DL (0.2-1.0) Aspartate Amino Transf (AST/SGOT) 56 U/L (15-37) H Alanine Aminotransferase (ALT/SGPT) 71 U/L (12-78) Alkaline Phosphatase 176 U/L (46-116) H Total Protein 7.4 G/DL (6.4-8.2) Albumin 2.8 G/DL (3.4-5.0) L Globulin 4.6 g/dL Albumin/Globulin Ratio 0.6 (1.0-2.7) L Hepatitis A IgM Antibody Pending Hepatitis B Surface Antigen Pending Hepatitis B Core IgM Antibody Pending Hepatitis C Antibody Pending Height (Feet): 5 Height (Inches): 5.00 Weight (Pounds): 231 General Appearance: WD/WN, no apparent distress, alert Cardiovascular: normal rate Respiratory/Chest: normal breath sounds, no respiratory distress Abdominal Exam: normal bowel sounds, non tender, soft Extremities: normal range of motion, non-tender Isabela Vásquez NP Jul 28, 2019 13:09
[2019-07-28] MEDS ORDERED: Simethicone 80mg tab ORAL PRN (13:15)
--- NOTE | 2019-07-28 14:09 | Infectious Diseases Prog Note ---
Assessment/Plan Assessment/Plan IMPRESSION: 1. Obstructive uropathy, likely with UTI and pyelonephritis. 2. Distal ureteral calculus. 3. Elevated transaminase. 4. Obesity. 5. Hypertension. 6. Diverticulosis. 7. Adrenal nodule. 8. Hydronephrosis with hydroureter. RECOMMENDATION: We will continue ceftriaxone Urologic evaluation Subjective Constitutional: Reports: no symptoms Respiratory: Reports: no symptoms Cardiovascular: Reports: no symptoms Gastrointestinal/Abdominal: Reports: no symptoms Allergies: Coded Allergies: No Known Allergies (Unverified , 07/27/19) Objective Vital Signs Last 24 Hour Vital Signs Date Time Temp Pulse Resp B/P (MAP) Pulse Ox O2 Delivery O2 Flow Rate FiO2 07/28/19 09:00 Room Air 07/28/19 08:53 143/89 07/28/19 08:00 97.5 63 19 143/89 (107) 95 07/28/19 07:49 70 16 98 Room Air 21 07/28/19 04:00 97.5 72 19 130/71 (90) 94 07/28/19 03:46 76 18 99 Room Air 21 77 18 94 07/28/19 00:00 98.1 59 20 115/73 (87) 100 07/27/19 23:59 74 18 99 Room Air 21 71 18 96 07/27/19 21:00 Room Air 07/27/19 20:08 74 18 97 Room Air 21 07/27/19 20:08 77 18 99 Room Air 21 74 18 97 07/27/19 20:00 97.6 64 20 115/65 (82) 94 07/27/19 16:00 98.1 62 20 132/91 (105) 98 07/27/19 15:54 78 18 98 Room Air 21 07/27/19 15:52 82 18 99 Room Air 21 73 18 94 Height (Feet): 5 Height (Inches): 5.00 Weight (Pounds): 231 General Appearance: no acute distress HEENT: mucous membranes moist Respiratory/Chest: lungs clear Cardiovascular: normal rate Abdomen: soft, non tender Extremities: no edema Neurologic/Psychiatric: alert, oriented x 3, responsive Microbiology Date/Time Source Procedure Growth Status 07/27/19 00:55 Urine,Clean Catch Urine Culture - Preliminary Resulted Laboratory Tests Test 07/28/19 08:20 Sodium Level 141 MMOL/L (136-145) Potassium Level 3.9 MMOL/L (3.5-5.1) Chloride Level 106 MMOL/L (98-107) Carbon Dioxide Level 30 MMOL/L (21-32) Anion Gap 5 mmol/L (5-15) Blood Urea Nitrogen 20 mg/dL (7-18) H Creatinine 1.3 MG/DL (0.55-1.30) Estimat Glomerular Filtration Rate 50.8 mL/min (>60) Glucose Level 101 MG/DL (74-106) Calcium Level 9.0 MG/DL (8.5-10.1) Total Bilirubin 0.3 MG/DL (0.2-1.0) Aspartate Amino Transf (AST/SGOT) 56 U/L (15-37) H Alanine Aminotransferase (ALT/SGPT) 71 U/L (12-78) Alkaline Phosphatase 176 U/L (46-116) H Total Protein 7.4 G/DL (6.4-8.2) Albumin 2.8 G/DL (3.4-5.0) L Globulin 4.6 g/dL Albumin/Globulin Ratio 0.6 (1.0-2.7) L Hepatitis A IgM Antibody Pending Hepatitis B Surface Antigen Pending Hepatitis B Core IgM Antibody Pending Hepatitis C Antibody Pending Current Medications Medications (Trade) Dose Ordered Sig/Sarah Route PRN Reason Start Time Stop Time Status Last Admin Dose Admin Acetaminophen (Tylenol) 650 mg Q6HR PRN ORAL Mild Pain (Pain Scale 1-3) 07/27/19 04:00 Albuterol/ Ipratropium (Albuterol/ Ipratropium) 3 ml Q4HRT HHN 07/27/19 15:00 08/01/19 14:59 07/28/19 03:46 Ceftriaxone Sodium 1 gm/ Dextrose 55 ml @ 110 mls/hr Q24H IVPB 07/28/19 02:00 08/04/19 01:59 07/28/19 02:11 Docusate Sodium (Colace) 100 mg THREE TIMES A DAY ORAL 07/28/19 18:00 08/27/19 17:59 Heparin Sodium (Porcine) (Heparin 5000 units/ml) 5,000 units EVERY 12 HOURS SUBQ 07/27/19 21:00 08/26/19 20:59 07/28/19 08:54 Iohexol (OMNIPAQUE-300 100ml) 100 ml NOW PRN INJ Radiology Procedure 07/27/19 00:45 07/29/19 00:39 Ketorolac Tromethamine (Toradol 30mg) 15 mg Q6H PRN IV moderate pain 07/27/19 09:00 08/01/19 08:59 Losartan Potassium (Cozaar) 25 mg DAILY ORAL 07/28/19 09:00 08/27/19 08:59 07/28/19 08:53 Morphine Sulfate (Morphine Sulfate) 2 mg Q4H PRN IVP severe pain 07/27/19 09:00 08/03/19 08:59 07/28/19 09:03 Ondansetron HCl (Zofran) 4 mg Q6H PRN IVP Nausea & Vomiting 07/27/19 05:00 08/26/19 04:59 Polyethylene Glycol (Miralax) 17 gm BEDTIME ORAL 07/28/19 21:00 08/27/19 20:59 Simethicone (Mylicon) 80 mg QIDPRN PRN ORAL GAS PAIN 07/28/19 13:15 08/27/19 13:14 Sorbitol (Sorbitol) 30 ml Q6H PRN ORAL Constipation 07/28/19 05:30 08/27/19 05:29 07/28/19 06:29 Arsenio Bravo MD Jul 28, 2019 14:08
[2019-07-28 16:00] VITALS: BP 135/89
[2019-07-28] MEDS: Docusate 100mg cap ORAL SCH (18:06)
--- NOTE | 2019-07-28 18:50 | Pulmonology Progress Note ---
Assessment/Plan Assessment/Plan Pulmonary Progress Note HPI Patient is a 59-year-old female admitted with abdominal pain, nausea and vomiting started tonight. Status post cholecystectomy 3 months ago. Notes pain to lower abdomen, 8 out of 10, sharp, nonradiating. History of diverticulitis but states this feels different. Denies fevers or chills. No other aggravating relieving factors. Denies any other associated symptoms Allergies: No Known Allergies Past Medical History: Hypertension, Obstructive Sleep Apnea, Diverticulitis Past Surgical History: cholecystectomy Social History: Denies alcohol use, drug use, smoking history All Other Systems: negative except mentioned in HPI Physical Exam Vital Signs Noted General Appearance: no apparent distress, alert, GCS 15, non-toxic Head: normocephalic, atraumatic Eyes: bilateral eye normal inspection, bilateral eye PERRL ENT: hearing grossly normal, normal pharynx, no angioedema, normal voice Neck: full range of motion, supple/symm/no masses Respiratory: chest non-tender, lungs clear, normal breath sounds Cardiovascular: regular rate, rhythm, HS1, HS2 normal, no edema Gastrointestinal: normal bowel sounds, soft, non-distended, no guarding, no rebound, tenderness, no CVA tenderness Musculoskeletal: back normal, normal range of motion, gait/station normal, non- tender Neurologic: alert, motor strength/tone normal, oriented x3, sensory intact, responsive, speech normal Lymphatic: no adenopathy Impression: Kidney stone Urinary tract infection Diverticulosis Hypertension Obstructive Sleep Apnea Possible COPD Plan IV Antibiotics Urology Following GI Following POLICE LIAISON Medications BiPAP QHS/PRN HHN PRN O2 PRN POLICE LIAISON medications Monitor Labs Labs Noted Test 07/27/19 00:55 07/27/19 01:00 Urine Color Yellow Urine Appearance Slightly cloudy Urine pH 5 (4.5-8.0) Urine Specific [place] 1.025 (1.005-1.035) Urine Protein 2+ (NEGATIVE) Urine Glucose (UA) Negative (NEGATIVE) Urine Ketones Negative (NEGATIVE) Urine Blood 1+ (NEGATIVE) Urine Nitrite Negative (NEGATIVE) Urine Bilirubin Negative (NEGATIVE) Urine Urobilinogen Normal MG/DL (0.0-1.0) Urine Leukocyte Esterase 3+ (NEGATIVE) Urine RBC 2-4 /HPF (0 - 2) Urine WBC 20-30 /HPF (0 - 2) Urine Squamous Epithelial Cells Many /LPF (NONE/OCC) Urine Bacteria Moderate /HPF (NONE) White Blood Count 9.8 K/UL (4.8-10.8) Red Blood Count 4.50 M/UL (4.20-5.40) Hemoglobin 13.8 G/DL (12.0-16.0) Hematocrit 40.6 % (37.0-47.0) Mean Corpuscular Volume 90 FL (80-99) Mean Corpuscular Hemoglobin 30.7 PG (27.0-31.0) Mean Corpuscular Hemoglobin Concent 34.0 G/DL (32.0-36.0) Red Cell Distribution Width 12.1 % (11.6-14.8) Platelet Count 198 K/UL (150-450) Mean Platelet Volume 9.8 FL (6.5-10.1) Neutrophils (%) (Auto) 80.1 % (45.0-75.0) Lymphocytes (%) (Auto) 13.2 % (20.0-45.0) Monocytes (%) (Auto) 5.1 % (1.0-10.0) Eosinophils (%) (Auto) 0.3 % (0.0-3.0) Basophils (%) (Auto) 1.3 % (0.0-2.0) Sodium Level 141 MMOL/L (136-145) Potassium Level 4.0 MMOL/L (3.5-5.1) Chloride Level 105 MMOL/L (98-107) Carbon Dioxide Level 28 MMOL/L (21-32) Anion Gap 9 mmol/L (5-15) Blood Urea Nitrogen 19 mg/dL (7-18) Creatinine 1.0 MG/DL (0.55-1.30) Estimat Glomerular Filtration Rate > 60 mL/min (>60) Glucose Level 140 MG/DL (74-106) Calcium Level 9.4 MG/DL (8.5-10.1) Total Bilirubin 0.3 MG/DL (0.2-1.0) Aspartate Amino Transf (AST/SGOT) 50 U/L (15-37) Alanine Aminotransferase (ALT/SGPT) 80 U/L (12-78) Alkaline Phosphatase 191 U/L (46-116) Total Protein 8.3 G/DL (6.4-8.2) Albumin 3.3 G/DL (3.4-5.0) Globulin 5.0 g/dL Albumin/Globulin Ratio 0.7 (1.0-2.7) Lipase 105 U/L (73-393) CT Abdomen and Pelvis : CT ABDOMEN & PELVIS With Contrast: There is a 7 mm obstructing stone within the distal left ureter just prior to the UVJ with moderate upstream obstructive changes. Incompletely characterized 1.4 cm left adrenal nodule. Descending and sigmoid diverticulosis without diverticulitis Subjective ROS Limited/Unobtainable: No Allergies: Coded Allergies: No Known Allergies (Unverified , 07/27/19) Objective Last 24 Hour Vital Signs Date Time Temp Pulse Resp B/P (MAP) Pulse Ox O2 Delivery O2 Flow Rate FiO2 07/28/19 16:00 97.2 58 18 135/89 (104) 98 07/28/19 09:00 Room Air 07/28/19 08:53 143/89 07/28/19 08:00 97.5 63 19 143/89 (107) 95 07/28/19 07:49 70 16 98 Room Air 21 07/28/19 04:00 97.5 72 19 130/71 (90) 94 07/28/19 03:46 76 18 99 Room Air 21 77 18 94 07/28/19 00:00 98.1 59 20 115/73 (87) 100 07/27/19 23:59 74 18 99 Room Air 21 71 18 96 07/27/19 21:00 Room Air 07/27/19 20:08 74 18 97 Room Air 21 07/27/19 20:08 77 18 99 Room Air 21 74 18 97 07/27/19 20:00 97.6 64 20 115/65 (82) 94 Intake and Output 07/27/19 07/28/19 19:00 07:00 Intake Total 240 ml 110 ml Balance 240 ml 110 ml Intake Oral 240 ml IV Total 110 ml # Voids 3 2 Microbiology Date/Time Source Procedure Growth Status 07/27/19 00:55 Urine,Clean Catch Urine Culture - Preliminary Resulted Laboratory Tests 07/28/19 08:20: Sodium Level 141, Potassium Level 3.9, Chloride Level 106, Carbon Dioxide Level 30, Anion Gap 5, Blood Urea Nitrogen 20H, Creatinine 1.3, Estimat Glomerular Filtration Rate 50.8, Glucose Level 101, Calcium Level 9.0, Total Bilirubin 0.3 , Aspartate Amino Transf (AST/SGOT) 56H, Alanine Aminotransferase (ALT/SGPT) 71 , Alkaline Phosphatase 176H, Total Protein 7.4, Albumin 2.8L, Globulin 4.6, Albumin/Globulin Ratio 0.6L, Hepatitis A IgM Antibody [Pending], Hepatitis B Surface Antigen [Pending], Hepatitis B Core IgM Antibody [Pending], Hepatitis C Antibody [Pending] Current Medications Medications (Trade) Dose Ordered Sig/Sarah Route PRN Reason Start Time Stop Time Status Last Admin Dose Admin Acetaminophen (Tylenol) 650 mg Q6HR PRN ORAL Mild Pain (Pain Scale 1-3) 07/27/19 04:00 Albuterol/ Ipratropium (Albuterol/ Ipratropium) 3 ml Q4HRT HHN 07/27/19 15:00 08/01/19 14:59 07/28/19 03:46 Ceftriaxone Sodium 1 gm/ Dextrose 55 ml @ 110 mls/hr Q24H IVPB 07/28/19 02:00 08/04/19 01:59 07/28/19 02:11 Docusate Sodium (Colace) 100 mg THREE TIMES A DAY ORAL 07/28/19 18:00 08/27/19 17:59 07/28/19 18:06 Heparin Sodium (Porcine) (Heparin 5000 units/ml) 5,000 units EVERY 12 HOURS SUBQ 07/27/19 21:00 08/26/19 20:59 07/28/19 08:54 Iohexol (OMNIPAQUE-300 100ml) 100 ml NOW PRN INJ Radiology Procedure 07/27/19 00:45 07/29/19 00:39 Ketorolac Tromethamine (Toradol 30mg) 15 mg Q6H PRN IV moderate pain 07/27/19 09:00 08/01/19 08:59 Losartan Potassium (Cozaar) 25 mg DAILY ORAL 07/28/19 09:00 08/27/19 08:59 07/28/19 08:53 Morphine Sulfate (Morphine Sulfate) 2 mg Q4H PRN IVP severe pain 07/27/19 09:00 08/03/19 08:59 07/28/19 09:03 Ondansetron HCl (Zofran) 4 mg Q6H PRN IVP Nausea & Vomiting 07/27/19 05:00 08/26/19 04:59 Polyethylene Glycol (Miralax) 17 gm BEDTIME ORAL 07/28/19 21:00 08/27/19 20:59 Simethicone (Mylicon) 80 mg QIDPRN PRN ORAL GAS PAIN 07/28/19 13:15 08/27/19 13:14 Sorbitol (Sorbitol) 30 ml Q6H PRN ORAL Constipation 07/28/19 05:30 08/27/19 05:29 07/28/19 06:29 Tavo Marshall MD Jul 28, 2019 18:50
--- NOTE | 2019-07-28 19:11 | NUR ---
HAND-OFF: Report given to CARLOTA Morales and CARLOTA Vasquez.
--- NOTE | 2019-07-28 19:15 | NUR ---
NURSE NOTES: Pt. received sitting in bed, AAOx4, discussed pain 6/10 in right shoulder, aggravated at rest; will follow up with pain intervention per protocol. Pt. states still no BM today 07/28, but states passing gas. Educated to ambulate with precaution. Bed is in the low and locked position, side rails are up, and call light is in reach.
[2019-07-28 20:00] VITALS: BP 143/93
--- NOTE | 2019-07-28 20:00 | NUR ---
NURSE NOTES: Pt is in bed, awake and alert. No acute distress noted. Vitas stable. Pt is trying to have a BM, No bowel movement after the administration of sorbitol in the morning. Laxative will be given as ordered PRN. Trainee Pedro Rodriguez RN will be assisting in the care of this patient.
--- NOTE | 2019-07-28 20:49 | General Progress Note ---
Assessment/Plan Problem List: (1) Kidney stone ICD Codes: N20.0 - Calculus of kidney SNOMED: 47926403 (2) UTI (urinary tract infection) ICD Codes: N39.0 - Urinary tract infection, site not specified SNOMED: 56854806 Qualifiers: Qualified Codes: N39.0 - Urinary tract infection, site not specified; R31.9 - Hematuria, unspecified (3) Constipation ICD Codes: K59.00 - Constipation, unspecified SNOMED: 58191685 (4) Abdominal bloating ICD Codes: R14.0 - Abdominal distension (gaseous) SNOMED: 826713349 Status: stable, progressing Assessment/Plan: uti kidney stone dr diego consutled uti improving afebrile pain improving Subjective ROS Limited/Unobtainable: Yes Allergies: Coded Allergies: No Known Allergies (Unverified , 07/27/19) Objective Last 24 Hour Vital Signs Date Time Temp Pulse Resp B/P (MAP) Pulse Ox O2 Delivery O2 Flow Rate FiO2 07/28/19 19:40 68 20 98 Room Air 21 62 20 93 07/28/19 19:40 61 20 93 Room Air 21 07/28/19 16:00 97.2 58 18 135/89 (104) 98 07/28/19 09:00 Room Air 07/28/19 08:53 143/89 07/28/19 08:00 97.5 63 19 143/89 (107) 95 07/28/19 07:49 70 16 98 Room Air 21 07/28/19 04:00 97.5 72 19 130/71 (90) 94 07/28/19 03:46 76 18 99 Room Air 21 77 18 94 07/28/19 00:00 98.1 59 20 115/73 (87) 100 07/27/19 23:59 74 18 99 Room Air 21 71 18 96 07/27/19 21:00 Room Air Intake and Output 07/27/19 07/28/19 19:00 07:00 Intake Total 240 ml 110 ml Balance 240 ml 110 ml Intake Oral 240 ml IV Total 110 ml # Voids 3 2 Laboratory Tests 07/28/19 08:20: Sodium Level 141, Potassium Level 3.9, Chloride Level 106, Carbon Dioxide Level 30, Anion Gap 5, Blood Urea Nitrogen 20H, Creatinine 1.3, Estimat Glomerular Filtration Rate 50.8, Glucose Level 101, Calcium Level 9.0, Total Bilirubin 0.3 , Aspartate Amino Transf (AST/SGOT) 56H, Alanine Aminotransferase (ALT/SGPT) 71 , Alkaline Phosphatase 176H, Total Protein 7.4, Albumin 2.8L, Globulin 4.6, Albumin/Globulin Ratio 0.6L, Hepatitis A IgM Antibody [Pending], Hepatitis B Surface Antigen [Pending], Hepatitis B Core IgM Antibody [Pending], Hepatitis C Antibody [Pending] Height (Feet): 5 Height (Inches): 5.00 Weight (Pounds): 231 Respiratory/Chest: lungs clear Abdomen: soft James Medeiros MD Jul 28, 2019 20:49
[2019-07-28] MEDS ORDERED: Miralax 17gm pkt ORAL SCH (21:00)
--- NOTE | 2019-07-28 21:09 | NUR ---
NURSE NOTES: Pt. refused bedtime miralax dose. Educated pt. to ambulate to help stimulate bowel movements and prevent constipation from prolonged bedrest.
--- NOTE | 2019-07-28 22:15 | NUR ---
NURSE NOTES: Pt. refused BIPAP, per respiratory therapist.
[2019-07-29] VITALS: BP 138/95
--- NOTE | 2019-07-29 01:58 | NUR ---
NURSE NOTES: Pt. observed sleeping in bed, snoring. Vital signs stable and no SOB of breath noted at this time. Bed is in the low and locked position, side rails are up, and call light is in reach.
[2019-07-29] MEDS: cefTRIAXone 1 GM in D5W 55 ML IVPB SCH (02:13)
[2019-07-29] MEDS: Morphine Sulfate 2mg/ml Inj(IV/IM USE ONLY) IVP PRN (02:14)
[2019-07-29] MEDS: Albuterol/Ipratropium 3ml neb HHN SCH ×4 (02:25→14:36)
[2019-07-29 04:00] VITALS: BP 140/82
--- NOTE | 2019-07-29 07:30 | NUR ---
NURSE NOTES: Received pt from DARIO/MCKENZIE RN. Pt is alert and orient x4. Pt is eating breakfast. pt is in RA, no SOB or acute respiratory distress noted. pt has intact iv access LAC 20g SL and RH 22G SL. No complain of pain at this moment. all needs attended, bed is locked and is in the lowest position, call light within easy reach. will continue to monitor.
--- NOTE | 2019-07-29 07:32 | NUR ---
HAND-OFF: Report given to CARLOTA Ontiveros.
[2019-07-29 07:34] LABS: BASOPHILS % (AUTO) 1.2 % (0.0-2.0); EOSINOPHILS % (AUTO) 3.4 % (0.0-3.0); HEMATOCRIT 37.4 % (37.0-47.0); HEMOGLOBIN 11.9 G/DL (12.0-16.0); LYMPHOCYTES % (AUTO) 27.1 % (20.0-45.0); MEAN CORPUSCULAR VOLUME 96 FL (80-99); MONOCYTES % (AUTO) 6.5 % (1.0-10.0); NEUTROPHILS % (AUTO) 61.8 % (45.0-75.0); PLATELET COUNT 194 K/UL (150-450); RED BLOOD COUNT 3.88 M/UL (4.20-5.40); RED CELL DISTRIBUTION WIDTH 13.2 % (11.6-14.8); WHITE BLOOD COUNT 6.8 K/UL (4.8-10.8)
--- NOTE | 2019-07-29 07:44 | General Progress Note ---
Assessment/Plan Status: stable, progressing Assessment/Plan: Assessment/Plan Problems: (1) Constipation ICD Codes: K59.00 - Constipation, unspecified SNOMED: 01229759 (2) Abdominal bloating ICD Codes: R14.0 - Abdominal distension (gaseous) SNOMED: 576944512 (3) Diverticulosis ICD Codes: K57.90 - Diverticulosis of intestine, part unspecified, without perforation or abscess without bleeding SNOMED: 948136591 Status: stable Status Narrative Assessment/Plan Assessment - N/V, ? resolved, ? gastroenteritis vs food poisoning >> patient has complaint of constipation - abnormal LFT, ? fatty liver, ? other - s/p recent cholecystectomy - urolithiasis with hydro Recommendations - check MRCP, negative for biliary ductal dilatation or choledocholithiasis - check hepatitis serologies, neg - Urology opinion - on diet - H2B or PPI - bowel regime>>>> add lactulose - simethicone prn Subjective ROS Limited/Unobtainable: Yes Allergies: Coded Allergies: No Known Allergies (Unverified , 07/27/19) Subjective c/o constipation Objective Last 24 Hour Vital Signs Date Time Temp Pulse Resp B/P (MAP) Pulse Ox O2 Delivery O2 Flow Rate FiO2 07/29/19 04:00 97.9 71 20 140/82 (101) 93 07/29/19 00:00 98.2 77 16 138/95 (109) 96 07/28/19 22:18 64 20 97 Room Air 21 61 20 94 07/28/19 21:00 Room Air 07/28/19 20:00 98.1 77 18 143/93 (110) 94 07/28/19 19:40 68 20 98 Room Air 21 62 20 93 07/28/19 19:40 61 20 93 Room Air 21 07/28/19 16:00 97.2 58 18 135/89 (104) 98 07/28/19 09:00 Room Air 07/28/19 08:53 143/89 07/28/19 08:00 97.5 63 19 143/89 (107) 95 07/28/19 07:49 70 16 98 Room Air 21 Intake and Output 07/28/19 07/29/19 19:00 07:00 Intake Total 1000 ml 555 ml Balance 1000 ml 555 ml Intake Oral 1000 ml 500 ml IV Total 55 ml # Voids 4 6 Laboratory Tests 07/28/19 08:20: Sodium Level 141, Potassium Level 3.9, Chloride Level 106, Carbon Dioxide Level 30, Anion Gap 5, Blood Urea Nitrogen 20H, Creatinine 1.3, Estimat Glomerular Filtration Rate 50.8, Glucose Level 101, Calcium Level 9.0, Total Bilirubin 0.3 , Aspartate Amino Transf (AST/SGOT) 56H, Alanine Aminotransferase (ALT/SGPT) 71 , Alkaline Phosphatase 176H, Total Protein 7.4, Albumin 2.8L, Globulin 4.6, Albumin/Globulin Ratio 0.6L, Hepatitis A IgM Antibody Negative, Hepatitis B Surface Antigen Negative, Hepatitis B Core IgM Antibody Negative, Hepatitis C Antibody <0.1 07/29/19 06:05: Sodium Level [Pending], Potassium Level [Pending], Chloride Level [Pending], Carbon Dioxide Level [Pending], Blood Urea Nitrogen [Pending], Creatinine [ Pending], Estimat Glomerular Filtration Rate [Pending], Glucose Level [Pending] , Calcium Level [Pending], White Blood Count [Pending], Red Blood Count [Pending ], Hemoglobin [Pending], Hematocrit [Pending], Mean Corpuscular Volume [Pending] , Mean Corpuscular Hemoglobin [Pending], Mean Corpuscular Hemoglobin Concent [ Pending], Red Cell Distribution Width [Pending], Platelet Count [Pending], Mean Platelet Volume [Pending], Neutrophils (%) (Auto) [Pending], Lymphocytes (%) ( Auto) [Pending], Monocytes (%) (Auto) [Pending], Eosinophils (%) (Auto) [Pending ], Basophils (%) (Auto) [Pending] Height (Feet): 5 Height (Inches): 5.00 Weight (Pounds): 231 General Appearance: alert EENT: normal ENT inspection Neck: supple Cardiovascular: normal rate Respiratory/Chest: lungs clear Abdomen: soft, hypoactive bowel sounds, tender Extremities: non-tender Bert Baarjas MD Jul 29, 2019 07:44
[2019-07-29 07:57] LABS: ANION GAP 7 mmol/L (5-15); BLOOD UREA NITROGEN 17 mg/dL (7-18); CALCIUM 8.7 MG/DL (8.5-10.1); CARBON DIOXIDE 28 MMOL/L (21-32); CHLORIDE 103 MMOL/L (98-107); CREATININE 1.3 MG/DL (0.55-1.30); POTASSIUM 3.8 MMOL/L (3.5-5.1); SODIUM 138 MMOL/L (136-145)
[2019-07-29 08:00] VITALS: BP 131/76
[2019-07-29] MEDS: Lactulose 20gm/30ml UDC ORAL SCH ×2 (08:46→12:27)
[2019-07-29] MEDS: Docusate 100mg cap ORAL SCH ×2 (08:47→12:27)
[2019-07-29] MEDS: Losartan 25mg tab ORAL SCH (08:47)
[2019-07-29] MEDS: Heparin 5000 units/ml inj SUBQ SCH (08:48)
[2019-07-29] MEDS ORDERED: HYDROcodone/Acetamin 5/325 tab ORAL PRN (10:45)
--- NOTE | 2019-07-29 10:53 | General Progress Note ---
Assessment/Plan Assessment/Plan: (1) Left sided flank pain (2) Kidney stone Patient to be continued on Morphine We will discontinue Toradol. We will start [place] 5/325mg PO 1 tab Q4H PRN We will write an RX for Tylenol #3 5 tabs and Narcan nasal spray was written for patient in anticipation for discharge. D/w Dr. Jones and he concurred. Subjective Date patient seen: Jul 29, 2019 Time patient seen: 09:45 - am Constitutional: Reports: no symptoms HEENT: Reports: no symptoms Cardiovascular: Reports: no symptoms Respiratory: Reports: no symptoms Gastrointestinal/Abdominal: Reports: no symptoms Genitourinary: Reports: no symptoms Neurologic/Psychiatric: Reports: no symptoms Endocrine: Reports: no symptoms Hematologic/Lymphatic: Reports: no symptoms Allergies: Coded Allergies: No Known Allergies (Unverified , 07/27/19) Subjective Patient reports that the pain has been tolerated on the Morphine. Was seen by urologist and no procedures have been ordered pt states that she was informed stone is passing on its own. Objective Last 24 Hour Vital Signs Date Time Temp Pulse Resp B/P (MAP) Pulse Ox O2 Delivery O2 Flow Rate FiO2 07/29/19 08:47 131/76 07/29/19 08:11 67 20 98 Room Air 21 64 20 94 07/29/19 08:10 64 20 94 Room Air 21 07/29/19 08:00 97.9 66 18 131/76 (94) 98 07/29/19 04:00 97.9 71 20 140/82 (101) 93 07/29/19 00:00 98.2 77 16 138/95 (109) 96 07/28/19 22:18 64 20 97 Room Air 21 61 20 94 07/28/19 21:00 Room Air 07/28/19 20:00 98.1 77 18 143/93 (110) 94 07/28/19 19:40 68 20 98 Room Air 21 62 20 93 07/28/19 19:40 61 20 93 Room Air 21 07/28/19 16:00 97.2 58 18 135/89 (104) 98 Intake and Output 07/28/19 07/29/19 19:00 07:00 Intake Total 1000 ml 555 ml Balance 1000 ml 555 ml Intake Oral 1000 ml 500 ml IV Total 55 ml # Voids 4 6 Laboratory Tests 07/29/19 06:05: White Blood Count 6.8, Red Blood Count 3.88L, Hemoglobin 11.9L, Hematocrit 37.4 , Mean Corpuscular Volume 96, Mean Corpuscular Hemoglobin 30.7, Mean Corpuscular Hemoglobin Concent 31.8L, Red Cell Distribution Width 13.2, Platelet Count 194, Mean Platelet Volume 11.0H, Neutrophils (%) (Auto) 61.8, Lymphocytes (%) (Auto) 27.1, Monocytes (%) (Auto) 6.5, Eosinophils (%) (Auto) 3.4H, Basophils (%) (Auto) 1.2, Sodium Level 138, Potassium Level 3.8, Chloride Level 103, Carbon Dioxide Level 28, Anion Gap 7, Blood Urea Nitrogen 17, Creatinine 1.3, Estimat Glomerular Filtration Rate 50.8, Glucose Level 91, Calcium Level 8.7 Height (Feet): 5 Height (Inches): 5.00 Weight (Pounds): 231 General Appearance: no apparent distress, alert EENT: PERRL/EOMI, normal ENT inspection Neck: normal alignment, supple Cardiovascular: normal rate, regular rhythm Respiratory/Chest: decreased breath sounds Abdomen: non tender, soft Extremities: non-tender Edema: no edema noted Generalized Neurologic: alert, oriented x 3 Skin: warm/dry Vik Shepard Jul 29, 2019 10:52
--- NOTE | 2019-07-29 11:10 | NUR ---
RESPIRATORY NOTE: pt refused breathing treatment and stated she wanted to "get up and walk". RNWeston notified
--- NOTE | 2019-07-29 11:53 | NUR ---
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 97.9 HR 80 RR 18 B/P 145/61 AST 50 ALT 80 ALK PHOS 191 UA+ PROTEIN, LEUKOCYTE ESTERASE,RBC,WBC,SQUAMOUS EPTH CELL IS: ZOFRAN IV PEPCID IV IV BOLUS NS X 2 LITERS TORADOL IV ROCEPHIN IV ADMITTED TO MED/SURG MED/SURG STATUS DCP RETURN HOME
[2019-07-29 12:00] VITALS: BP 142/84
--- NOTE | 2019-07-29 14:33 | NUR ---
NURSE NOTES: Dr Roe KUMARI is notified if clear pt to D/C, stated he will come to visit pt. will continue to monitor.
--- NOTE | 2019-07-29 14:53 | NUR ---
*-* INSURANCE *-* ALL CLINICALS AND REVIEWS HAVE BEEN FAXED TO: [facility] Ref#[id number] ph#[phone] fax#[phone]
--- NOTE | 2019-07-29 15:56 | Infectious Diseases Prog Note ---
Assessment/Plan Assessment/Plan IMPRESSION: 1. Obstructive uropathy, likely with UTI and pyelonephritis. 2. Distal ureteral calculus. 3. Elevated transaminase. 4. Obesity. 5. Hypertension. 6. Diverticulosis. 7. Adrenal nodule. 8. Hydronephrosis with hydroureter. RECOMMENDATION: Discontinue ceftriaxone Start on Ciprofloxacin Urologist will f/u patient in a week Subjective ROS Limited/Unobtainable: No Constitutional: Reports: fever Respiratory: Reports: no symptoms Cardiovascular: Reports: no symptoms Gastrointestinal/Abdominal: Reports: bloating Genitourinary: Reports: no symptoms Allergies: Coded Allergies: No Known Allergies (Unverified , 07/27/19) Objective Vital Signs Last 24 Hour Vital Signs Date Time Temp Pulse Resp B/P (MAP) Pulse Ox O2 Delivery O2 Flow Rate FiO2 07/29/19 12:00 98.3 62 18 142/84 (103) 97 07/29/19 09:00 Room Air 07/29/19 08:47 131/76 07/29/19 08:11 67 20 98 Room Air 21 64 20 94 07/29/19 08:10 64 20 94 Room Air 21 07/29/19 08:00 97.9 66 18 131/76 (94) 98 07/29/19 04:00 97.9 71 20 140/82 (101) 93 07/29/19 00:00 98.2 77 16 138/95 (109) 96 07/28/19 22:18 64 20 97 Room Air 21 61 20 94 07/28/19 21:00 Room Air 07/28/19 20:00 98.1 77 18 143/93 (110) 94 07/28/19 19:40 68 20 98 Room Air 21 62 20 93 07/28/19 19:40 61 20 93 Room Air 21 07/28/19 16:00 97.2 58 18 135/89 (104) 98 Height (Feet): 5 Height (Inches): 5.00 Weight (Pounds): 231 General Appearance: no acute distress HEENT: mucous membranes moist Respiratory/Chest: lungs clear Cardiovascular: normal rate Abdomen: soft, non tender Extremities: no edema Neurologic/Psychiatric: alert, oriented x 3, responsive Microbiology Date/Time Source Procedure Growth Status 07/27/19 00:55 Urine,Clean Catch Urine Culture - Preliminary Resulted Laboratory Tests Test 07/29/19 06:05 White Blood Count 6.8 K/UL (4.8-10.8) Red Blood Count 3.88 M/UL (4.20-5.40) L Hemoglobin 11.9 G/DL (12.0-16.0) L Hematocrit 37.4 % (37.0-47.0) Mean Corpuscular Volume 96 FL (80-99) Mean Corpuscular Hemoglobin 30.7 PG (27.0-31.0) Mean Corpuscular Hemoglobin Concent 31.8 G/DL (32.0-36.0) L Red Cell Distribution Width 13.2 % (11.6-14.8) Platelet Count 194 K/UL (150-450) Mean Platelet Volume 11.0 FL (6.5-10.1) H Neutrophils (%) (Auto) 61.8 % (45.0-75.0) Lymphocytes (%) (Auto) 27.1 % (20.0-45.0) Monocytes (%) (Auto) 6.5 % (1.0-10.0) Eosinophils (%) (Auto) 3.4 % (0.0-3.0) H Basophils (%) (Auto) 1.2 % (0.0-2.0) Sodium Level 138 MMOL/L (136-145) Potassium Level 3.8 MMOL/L (3.5-5.1) Chloride Level 103 MMOL/L (98-107) Carbon Dioxide Level 28 MMOL/L (21-32) Anion Gap 7 mmol/L (5-15) Blood Urea Nitrogen 17 mg/dL (7-18) Creatinine 1.3 MG/DL (0.55-1.30) Estimat Glomerular Filtration Rate 50.8 mL/min (>60) Glucose Level 91 MG/DL (74-106) Calcium Level 8.7 MG/DL (8.5-10.1) Current Medications Medications (Trade) Dose Ordered Sig/Sarah Route PRN Reason Start Time Stop Time Status Last Admin Dose Admin Acetaminophen (Tylenol) 650 mg Q6HR PRN ORAL Mild Pain (Pain Scale 1-3) 07/27/19 04:00 Acetaminophen/ Hydrocodone Bitart ([place] 5/325) 1 tab Q4H PRN ORAL Moderate Pain (Pain Scale 4-6) 07/29/19 10:45 08/05/19 10:44 Albuterol/ Ipratropium (Albuterol/ Ipratropium) 3 ml Q4HRT HHN 07/27/19 15:00 08/01/19 14:59 07/29/19 08:09 Ceftriaxone Sodium 1 gm/ Dextrose 55 ml @ 110 mls/hr Q24H IVPB 07/28/19 02:00 08/04/19 01:59 07/29/19 02:13 Docusate Sodium (Colace) 100 mg THREE TIMES A DAY ORAL 07/28/19 18:00 08/27/19 17:59 07/29/19 08:47 Heparin Sodium (Porcine) (Heparin 5000 units/ml) 5,000 units EVERY 12 HOURS SUBQ 07/27/19 21:00 08/26/19 20:59 07/29/19 08:48 Lactulose (Cephulac) 20 gm THREE TIMES A DAY ORAL 07/29/19 09:00 08/28/19 08:59 07/29/19 12:27 Losartan Potassium (Cozaar) 25 mg DAILY ORAL 07/28/19 09:00 08/27/19 08:59 07/29/19 08:47 Morphine Sulfate (Morphine Sulfate) 2 mg Q4H PRN IVP severe pain 07/27/19 09:00 08/03/19 08:59 07/29/19 02:14 Ondansetron HCl (Zofran) 4 mg Q6H PRN IVP Nausea & Vomiting 07/27/19 05:00 08/26/19 04:59 Polyethylene Glycol (Miralax) 17 gm BEDTIME ORAL 07/28/19 21:00 08/27/19 20:59 Simethicone (Mylicon) 80 mg QIDPRN PRN ORAL GAS PAIN 07/28/19 13:15 08/27/19 13:14 Sorbitol (Sorbitol) 30 ml Q6H PRN ORAL Constipation 07/28/19 05:30 08/27/19 05:29 07/28/19 06:29 Arsenio Bravo MD Jul 29, 2019 15:56
[2019-07-29 16:00] VITALS: BP 147/81
[2019-07-29] MEDS ORDERED: CIPRO250 MG/51 PO (16:17)
[2019-07-29] MEDS ORDERED: Tubing IV Secondary IV ONE (16:50)
--- NOTE | 2019-07-29 17:00 | NUR ---
NURSE NOTES: pt has D/C order, all discharge assessments and instructions done and pt verbally confirmed to understand all. pt is stable, V/S stable. Dr Roe KUMARI visited pt and cleared pt to D/C and gave her prescription. Dr KUMARI is aware about T 99.1 and stated it is ok. all belongings are with pt and she signed belongings list. iv access D/C. pt has [address] KUMARI and VINAY RANGEL and pt asked to take prescription by her self. no complain of pain at this moment. pt left hospital with accompany of her grand mother.
--- NOTE | 2019-07-29 17:34 | Pulmonology Progress Note ---
Assessment/Plan Assessment/Plan Pulmonary Progress Note HPI Patient is a 59-year-old female admitted with abdominal pain, nausea and vomiting started tonight. Status post cholecystectomy 3 months ago. History of diverticulitis. Denies fevers or chills. No other aggravating relieving factors. Denies any other associated symptoms Ambulating, no current complaints Allergies: No Known Allergies Past Medical History: Hypertension, Obstructive Sleep Apnea, Diverticulitis Past Surgical History: cholecystectomy Social History: Denies alcohol use, drug use, smoking history All Other Systems: negative except mentioned in HPI Physical Exam Vital Signs Noted General Appearance: no apparent distress, alert, GCS 15, non-toxic Head: normocephalic, atraumatic Eyes: bilateral eye normal inspection, bilateral eye PERRL ENT: hearing grossly normal, normal pharynx, no angioedema, normal voice Neck: full range of motion, supple/symm/no masses Respiratory: chest non-tender, lungs clear, normal breath sounds Cardiovascular: regular rate, rhythm, HS1, HS2 normal, no edema Gastrointestinal: normal bowel sounds, soft, non-distended, no guarding, no rebound, no tenderness, no CVA tenderness Musculoskeletal: back normal, normal range of motion, gait/station normal, non- tender Neurologic: alert, motor strength/tone normal, oriented x3, sensory intact, responsive, speech normal Lymphatic: no adenopathy Impression: Kidney stone - Urology following Urinary tract infection improved Diverticulosis Hypertension Obstructive Sleep Apnea Possible COPD Plan Antibiotics per ID Urology Following - will see as O/P GI Following CABLE MECHANIC Medications BiPAP QHS/PRN HHN PRN O2 PRN CABLE MECHANIC medications Monitor Labs Labs Noted CT Abdomen and Pelvis : CT ABDOMEN & PELVIS With Contrast: There is a 7 mm obstructing stone within the distal left ureter just prior to the UVJ with moderate upstream obstructive changes. Incompletely characterized 1.4 cm left adrenal nodule. Descending and sigmoid diverticulosis without diverticulitis Seen earlier Subjective ROS Limited/Unobtainable: No Allergies: Coded Allergies: No Known Allergies (Unverified , 07/27/19) Objective Last 24 Hour Vital Signs Date Time Temp Pulse Resp B/P (MAP) Pulse Ox O2 Delivery O2 Flow Rate FiO2 07/29/19 16:00 99.1 80 20 147/81 (103) 98 07/29/19 12:00 98.3 62 18 142/84 (103) 97 07/29/19 09:00 Room Air 07/29/19 08:47 131/76 07/29/19 08:11 67 20 98 Room Air 21 64 20 94 07/29/19 08:10 64 20 94 Room Air 21 07/29/19 08:00 97.9 66 18 131/76 (94) 98 07/29/19 04:00 97.9 71 20 140/82 (101) 93 07/29/19 00:00 98.2 77 16 138/95 (109) 96 07/28/19 22:18 64 20 97 Room Air 21 61 20 94 07/28/19 21:00 Room Air 07/28/19 20:00 98.1 77 18 143/93 (110) 94 07/28/19 19:40 68 20 98 Room Air 21 62 20 93 07/28/19 19:40 61 20 93 Room Air 21 Intake and Output 07/28/19 07/29/19 18:59 06:59 Intake Total 1000 ml 555 ml Balance 1000 ml 555 ml Intake Oral 1000 ml 500 ml IV Total 55 ml # Voids 4 6 Microbiology Date/Time Source Procedure Growth Status 07/27/19 00:55 Urine,Clean Catch Urine Culture - Preliminary Resulted Laboratory Tests 07/29/19 06:05: White Blood Count 6.8, Red Blood Count 3.88L, Hemoglobin 11.9L, Hematocrit 37.4 , Mean Corpuscular Volume 96, Mean Corpuscular Hemoglobin 30.7, Mean Corpuscular Hemoglobin Concent 31.8L, Red Cell Distribution Width 13.2, Platelet Count 194, Mean Platelet Volume 11.0H, Neutrophils (%) (Auto) 61.8, Lymphocytes (%) (Auto) 27.1, Monocytes (%) (Auto) 6.5, Eosinophils (%) (Auto) 3.4H, Basophils (%) (Auto) 1.2, Sodium Level 138, Potassium Level 3.8, Chloride Level 103, Carbon Dioxide Level 28, Anion Gap 7, Blood Urea Nitrogen 17, Creatinine 1.3, Estimat Glomerular Filtration Rate 50.8, Glucose Level 91, Calcium Level 8.7 Tavo Marshall MD Jul 29, 2019 17:34
--- NOTE | 2019-07-31 11:26 | Discharge Summary ---
Discharge Summary Discharge Summary _ DATE OF ADMISSION: 07/27/2019 DATE OF DISCHARGE: 07/29/2019 DISCHARGED BY: Dr. James Quan CONSULTANTS: Dr. Tavo Jones BRIEF HOSPITAL COURSE: Patient is a 59-year-old female who presented to ED for complaints of abdominal pain and vomiting that started the night prior after eating dinner. She had nausea and vomiting. She noted pain to the lower abdomen, 8 out of 10, sharp, nonradiating. She is status post cholecystectomy. She has history of diverticulitis but feels pain is different. She denies any fever or chills. She has medical history of hypertension and obstructive sleep apnea. Upon evaluation at ED, blood work did not show any leukocytosis. Hemoglobin and hematocrit were stable. Electrolytes were normal. Lipase normal. Urinalysis showed +3 leukocyte esterase. 2-4 urine RBC, 20-30 urine WBC with moderate bacteria. CT of the abdomen and pelvis with contrast showed a 6 mm obstructing stone within the distal left ureter just prior to the UVJ with moderate upstream obstructive changes, resulting in left hydronephrosis, hydroureter, ocnsiderable staranding of the perinephric and periureteral fat. Incompletely characterized 1.4 cm left adrenal nodule. Descending and sigmoid diverticulosis without diverticulitis. She was given IV fluid. She was given morphine for pain. She was given pepcid and zofran. She was admitted for evaluation of kidney stone. internal control specialist consulted. He was given morphine as needed severe pain and Toradol as needed for moderate pain. GI was consulted for evaluation of vomiting and abnormal liver tests. Nausea and vomiting were transient. Symptoms resolved. Possible gastroenteritis versus food poisoning. She was given supportive measures. She presented with elevated liver function tests. MRI of the abdomen showed normal liver, pancreas , spleen. Patient is status post cholecystectomy. Bile ducts were nondilated and no evidence of filling defect. Hepatitis panel negative. She later on complained of constipation. She was given bowel regimen. Lactulose was added. Rotary Surface Grinder was consulted for obstructive sleep apnea and possible COPD. She was given O2 support. She was placed on standby BiPAP PRN. ID was consulted for UTI. She was given ceftriaxone. Urine culture showed growth of mixed gram-positive organisms. She complained of right shoulder pain. X-ray did not show any acute fracture. She was cleared for discharge home. Antibiotic was changed to ciprofloxacin p.o. To continue antibiotics for 7 more days. Advised to follow-up with urologist as outpatient. FINAL DIAGNOSES: Obstructive uropathy, likely with UTI and pyelonephritis Left distal ureteral calculus with left hydronephrosis and hydroureter Elevated liver transaminase Obesity Hypertension Diverticulosis Left adrenal nodule Obstructive sleep apnea Possible COPD Transient nausea and vomiting possible gastroenteritis and food poisoning DISPOSITION: Patient was discharged home. DISCHARGE MEDICATIONS: Refer to Discharge Medication List. DISCHARGE INSTRUCTIONS: Follow-up in a week. I have been assigned to complete a discharge summary on this account, I was not involved with the patient's management.--BRAXTON Phillips Jacqueline Robles NP Jul 31, 2019 11:26
== END 2019-07-29 16:51 | disposition home or self-care (01) | DRG 463 ==
LOC: EMR 00:36 → 4E 03:22 → EDBEDREQ 03:53
DX: N13.6 Pyonephrosis (principal); E66.9 Obesity, unspecified; Z68.38 Body mass index [BMI] 38.0-38.9, adult; K57.90 Diverticulosis of intestine, part unspecified, without perforation or abscess without bleeding; G47.33 Obstructive sleep apnea (adult) (pediatric); F17.200 Nicotine dependence, unspecified, uncomplicated; I10 Essential (primary) hypertension; J44.9 Chronic obstructive pulmonary disease, unspecified; K59.00 Constipation, unspecified; R74.0 Nonspecific elevation of levels of transaminase and lactic acid dehydrogenase [LDH]; E27.8 Other specified disorders of adrenal gland; R14.0 Abdominal distension (gaseous); K52.9 Noninfective gastroenteritis and colitis, unspecified; A05.9 Bacterial foodborne intoxication, unspecified
CPT/HCPCS: 36415; 74177; 74181; 80048; 80053; 81003; 83690; 85025; 86705; 86709; 86803; 87086; 87340; 94640; 94664; 96361; 96365; 96375; 99285; J2405; J7030; J7620